=== PATIENT | male | born 1965 | race Caucasian/White ===

== ENCOUNTER 2022-06-04 19:52 | Inpatient (IN) ==
[2022-06-04] MEDS ORDERED: NITROGLYCERIN SL 0.4 MG/TAB TAB SL PRN (20:25)
[2022-06-04] MEDS ORDERED: SODIUM CHLORIDE 0.9% 1000ML 1,000 ML IV STA (20:25)
[2022-06-04 20:37] LABS: Basophils # (auto) 0.03 K/uL (0-0.2); Basophils % (auto) 0.4 %; Eosinophils # (auto) 0.04 K/uL (0-0.50); Eosinophils % (auto) 0.5 %; Hematocrit (blood only) 42.3 % (40.1-51.0); Hemoglobin 14.7 g/dl (14.0-18.0); Immature Granulocytes # (auto) 0.24 K/uL (0.00-0.02); Immature Granulocytes % (auto) 3.1 %; Lymphocytes # (auto) 0.76 K/uL (1.2-3.4); Lymphocytes % (auto) 9.7 %; Mean Corpuscular Hemoglobin 29.4 pg (25.0-34.0); Mean Corpuscular Hgb Conc 34.8 g/dL (32.0-36.0); Mean Corpuscular Volume 84.6 fL (80.0-100.0); Mean Platelet Volume 9.8 fL (9.4-12.4); Monocytes # (auto) 0.51 K/uL (0.24-0.82); Monocytes % (auto) 6.5 %; Neutrophils # (auto) 6.25 K/uL (1.4-6.5); Neutrophils % (auto) 79.8 %; Platelet Count 195 K/uL (130-400); RDW Coefficient of Variation 12.1 % (11.5-14.5); RDW Standard Deviation 36.8 fL (36.4-46.3); White Blood Count 7.83 K/ul (4.8-10.8)
--- NOTE | 2022-06-04 20:45 | Emergency Department Note ---
History of Present Illness General Chief Complaint: Cardiac Assessment Time Seen by Provider: 06/04/22 20:17 History of Present Illness Provider Complaint: chest pain Onset (ago): hour(s) 1 Duration: intermittent Onset: during rest Pain Location: left chest Severity: moderate Maximum Pain Intensity: 4 Current Pain Intensity: 4 Quality: + heaviness Relieved By: + nothing Exacerbated By: + nothing Context: + recent illness (Recently had COVID 2 weeks ago); no recent surgery, no recent immobilization, no recent travel, no trauma/injury, no new medications or no history of DVT/PE Associated symptoms: + diaphoresis; no vomiting, no dyspnea, no syncope, no palpitations, no cough or no leg swelling Treatments prior to arrival: aspirin Home Medications Medication Instructions Recorded Confirmed Type amlodipine 10 mg tablet 10 mg PO DAILY 06/04/22 06/04/22 History aspirin 81 mg tablet,delayed 81 mg PO DAILY 06/04/22 06/04/22 History release atorvastatin 80 mg tablet 80 mg PO HS 06/04/22 06/04/22 History citalopram 20 mg tablet 20 mg PO DAILY 06/04/22 06/04/22 History garlic 300 mg capsule 300 mg PO DAILY 06/04/22 06/04/22 History metoprolol succinate 25 mg 25 mg PO DAILY 06/04/22 06/04/22 History tablet,extended release 24 hr omega 0-taq-gxy-fish oil 1,000 mg 1 cap PO DAILY 06/04/22 06/04/22 History (120 mg-180 mg) capsule (Fish Oil) Allergies Allergy/AdvReac Type Severity Reaction Status Date / Time No Known Allergies Allergy Mild Verified 06/04/22 20:36 Past Med/Surg History Medical History (Updated 06/05/22 @ 01:07 by Franco Samson) CAD (coronary artery disease) HTN (hypertension) Myocardial infarct No pertinent family history Surgical History (Updated 06/04/22 @ 20:43 by Franco Samson) No pertinent past surgical history Social History Smoking Status: Never smoker Feels Safe at Home: Yes Physical Exam Vital Signs Vital Signs - 24 hr 06/04/22 19:58 06/04/22 20:09 06/04/22 20:43 Temperature 36.8 C Temperature Source Oral Pulse Rate 73 66 Pulse Rate [Apical] Pulse Rhythm Regular Regular Pulse Rhythm [Apical] Pulse Strength Normal Pulse Strength [Apical] Respiratory Rate 16 16 Respiratory Effort / Characteristics Non-Labored Spontaneous Respiratory Depth Normal Respiratory Pattern Regular Blood Pressure 142/92 H Blood Pressure [Right Arm] Blood Pressure Mean 108 Blood Pressure Mean [Right Arm] Blood Pressure Position Semi-fowlers Blood Pressure Position [Right Arm] Pulse Oximetry 100 100 99 Oxygen Delivery Method Room Air Room Air Room Air Oxygen Flow Rate 0 Sepsis Recent Fever Within 48 Hours No Sepsis New/Unexplained Change in Mental Status No Sepsis Action Taken by Nursing No Action Required 06/04/22 20:48 06/04/22 22:30 06/05/22 00:10 Temperature Temperature Source Pulse Rate Pulse Rate [Apical] 67 74 71 Pulse Rhythm Pulse Rhythm [Apical] Regular Regular Regular Pulse Strength Pulse Strength [Apical] Normal Normal Normal Respiratory Rate 14 16 16 Respiratory Effort / Characteristics Non-Labored Spontaneous Non-Labored Spontaneous Non-Labored Spontaneous Respiratory Depth Normal Normal Normal Respiratory Pattern Regular Regular Regular Blood Pressure Blood Pressure [Right Arm] 123/73 127/74 144/78 H Blood Pressure Mean Blood Pressure Mean [Right Arm] 89 91 100 Blood Pressure Position Blood Pressure Position [Right Arm] Semi-fowlers Semi-fowlers Semi-fowlers Pulse Oximetry 99 100 99 Oxygen Delivery Method Room Air Room Air Room Air Oxygen Flow Rate Sepsis Recent Fever Within 48 Hours Sepsis New/Unexplained Change in Mental Status Sepsis Action Taken by Nursing Physical Exam GENERAL: He is oriented to person, place, and time. He appears well-developed and well-nourished. He does not appear distressed. HENT: Exam performed. - Head: Normocephalic and atraumatic. - Right Ear: External ear normal. No mastoid tenderness. - Left Ear: External ear normal. No mastoid tenderness. - Mouth/Throat: The oropharynx is clear and moist. No trismus in the jaw. No dental abscesses or uvula swelling. No oropharyngeal exudate or tonsillar abscesses. EYES: Conjunctivae and EOM are normal. Pupils are equal, round, and reactive to light. Right eye exhibits no discharge. Left eye exhibits no discharge. No scleral icterus. NECK: Normal range of motion. Neck supple. No JVD present. No spinous process tenderness present. No carotid bruit present. No rigidity. No tracheal deviation and normal range of motion present. No Brudzinski's sign and no Kernig's sign noted. CV: Normal rate, regular rhythm, normal heart sounds and intact distal pulses. There is no peripheral edema. Palpable radial pulses bue. PULM/CHEST: Effort normal and breath sounds normal. No respiratory distress. No stridor. He has no wheezes. He has no rales. - Chest Wall: He exhibits no tenderness. ABD: The abdomen is soft. Bowel sounds are normal. He has no distension. No mass is present. There is no tenderness. There is no rebound, no guarding, no Quinones's sign and no tenderness at McBurney's point. Rovsig negative. MUSC/SKEL: Normal range of motion. There is no peripheral edema, tenderness or deformity. LYMPH: No cervical adenopathy. NEURO: He is alert and oriented to person, place, and time. He has normal strength. No cranial nerve deficit or sensory deficit. Coordination and gait normal. GCS eye subscore is 4. GCS verbal subscore is 5. GCS motor subscore is 6. Cerebellar tests wnl. SKIN: Skin is warm and dry. He is not diaphoretic. PSYCH: He has a normal mood and affect. Behavior is normal. Judgment and thought content normal. Course Course 2017: The patient was evaluated in room A11B. A complete history and physical exam was performed Cardiac monitoring: An order was placed for continuous cardiac monitoring. The monitor shows a rate of 70 with sinus rhythm 2046: Status post 1 sublingual nitroglycerin patient reports his chest pain is completely resolved. 0013: Vital signs stable. Patient reporting no chest pain at this time. Patient reports he is visiting from [place]. Labs show an elevated D-dimer greater than 2000. CTA of the chest negative for PE. High-sensitivity troponin elevated at 64.6. Patient will be admitted to the [facility]ist team for chest pain. Dr. Mulligan team notified. Administered Medications Nitroglycerin (Nitroglycerin Sl 0.4 Mg/Tab Tab) 0.4 mg SL UD PRN PRN Reason: Chest Pain Stop: 07/04/22 20:24 Last Admin: 06/04/22 20:37 Dose: 0.4 mg Documented By: JANEEN Discontinued Medications Sodium Chloride (Nss 1000ml) 1,000 mls @ 999 mls/hr IV .Q1H1M STA Stop: 06/04/22 21:25 Last Infusion: 06/04/22 22:00 Dose: 0 mls/hr Documented By: Admin: 06/04/22 20:46 Dose: 999 mls/hr Documented By: JANEEN Ioversol (Optiray 320 500ml) 110 ml IV ONCE ONE Stop: 06/04/22 21:41 Last Admin: 06/04/22 21:40 Dose: 110 ml Documented By: [facility] Medical Decision Making Laboratory Data Result diagrams: 06/04/22 20:00 06/04/22 20:00 Labs: Lab Results 06/04/22 06/04/22 06/04/22 Range/Units 20:00 20:00 20:00 WBC 7.83 (4.8-10.8) K/ul RBC 5.00 (4.63-6.08) M/uL Hgb 14.7 (14.0-18.0) g/dl Hct 42.3 (40.1-51.0) % MCV 84.6 (80.0-100.0) fL MCH 29.4 (25.0-34.0) pg MCHC 34.8 (32.0-36.0) g/dL RDW Std Deviation 36.8 (36.4-46.3) fL RDW Coeff of Jayson 12.1 (11.5-14.5) % Plt Count 195 (130-400) K/uL MPV 9.8 (9.4-12.4) fL Immature Gran % (Auto) 3.1 % Neut % (Auto) 79.8 % Lymph % (Auto) 9.7 % [place] % (Auto) 6.5 % Eos % (Auto) 0.5 % Baso % (Auto) 0.4 % Neut # (Auto) 6.25 (1.4-6.5) K/uL Lymph # (Auto) 0.76 L (1.2-3.4) K/uL [place] # (Auto) 0.51 (0.24-0.82) K/uL Eos # (Auto) 0.04 (0-0.50) K/uL Baso # (Auto) 0.03 (0-0.2) K/uL Immature Gran # (Auto) 0.24 H (0.00-0.02) K/uL PT 11.1 (9.0-12.0) Seconds INR 1.0 (0.9-1.1) APTT 25.2 (21.0-31.0) Seconds PTT Ratio 0.9 D-Dimer 2080 H* (0-500) ug/L FEU Sodium 136 (136-145) mmol/L Potassium 4.2 (3.5-5.1) mmol/L Chloride 102 (98-107) mmol/L Carbon Dioxide 26 (21-32) mmol/L Anion Gap 8 (3-11) BUN 18 (6-23) mg/dl Creatinine 1.20 (0.6-1.4) mg/dl Est Cr Clr Drug Dosing 83.8 ml/min Est GFR ( Amer) 79.0 ml/min Est GFR (Non-Af Amer) 68.1 ml/min BUN/Creatinine Ratio 15.0 (10-20) Glucose 111 H (70-99(Fasting)) mg/dl Calcium 9.1 (8.5-10.1) mg/dl Troponin I High Sens 64.6 H* (0-20) pg/ml Lipase 30 (11-82) U/L SARS-CoV-2, RNA, NAAT (NEGATIVE) 06/04/22 Range/Units 20:45 WBC (4.8-10.8) K/ul RBC (4.63-6.08) M/uL Hgb (14.0-18.0) g/dl Hct (40.1-51.0) % MCV (80.0-100.0) fL MCH (25.0-34.0) pg MCHC (32.0-36.0) g/dL RDW Std Deviation (36.4-46.3) fL RDW Coeff of Jayson (11.5-14.5) % Plt Count (130-400) K/uL MPV (9.4-12.4) fL Immature Gran % (Auto) % Neut % (Auto) % Lymph % (Auto) % [place] % (Auto) % Eos % (Auto) % Baso % (Auto) % Neut # (Auto) (1.4-6.5) K/uL Lymph # (Auto) (1.2-3.4) K/uL [place] # (Auto) (0.24-0.82) K/uL Eos # (Auto) (0-0.50) K/uL Baso # (Auto) (0-0.2) K/uL Immature Gran # (Auto) (0.00-0.02) K/uL PT (9.0-12.0) Seconds INR (0.9-1.1) APTT (21.0-31.0) Seconds PTT Ratio D-Dimer (0-500) ug/L FEU Sodium (136-145) mmol/L Potassium (3.5-5.1) mmol/L Chloride (98-107) mmol/L Carbon Dioxide (21-32) mmol/L Anion Gap (3-11) BUN (6-23) mg/dl Creatinine (0.6-1.4) mg/dl Est Cr Clr Drug Dosing ml/min Est GFR ( Amer) ml/min Est GFR (Non-Af Amer) ml/min BUN/Creatinine Ratio (10-20) Glucose (70-99(Fasting)) mg/dl Calcium (8.5-10.1) mg/dl Troponin I High Sens (0-20) pg/ml Lipase (11-82) U/L SARS-CoV-2, RNA, NAAT NEGATIVE (NEGATIVE) Imaging Data Chest x-ray: Attestation: I personally reviewed and interpreted this imaging study as follows: My impression: Chest x-ray negative. Airway clear. No pneumothorax. No consolidation. No cardiomegaly or cephalization.. No free air under the diaphragm. No fractures of the skeletal structures. CT scan - chest: Radiologist's impression: PreliminaryFindingsOnly See Final Report For Complete Findings CTACHEST: No evidence of PE. Lungs are clear. No pleural effusions. No adenopathy. Heart size is normal. Aorta is unremarkable. Radiologist: Heber Murphy MD Study ready at 21:42 and initial results transmitted at 00:00 ECG Data Attestation: I personally reviewed and interpreted this ECG as follows: Additional Comments: EKG 1 at 1954: Sinus rhythm with a rate of 67. KS QRS and QT intervals within normal limits. No ST elevation or ST depression. EKG #2 at 2039: Sinus rhythm with rate of 67. KS QRS and QTc intervals are within normal limits. No ST elevation or ST depression. EKG #3 at 39: Sinus rhythm with rate of 66. KS QRS and QTc intervals are within normal limits. No ST elevation or ST depression. MDM Narrative 2017: The patient was evaluated in room A11B. A complete history and physical exam was performed Cardiac monitoring: An order was placed for continuous cardiac monitoring. The monitor shows a rate of 70 with sinus rhythm 2046: Status post 1 sublingual nitroglycerin patient reports his chest pain is completely resolved. 0013: Vital signs stable. Patient reporting no chest pain at this time. Patient reports he is visiting from [place]. Labs show an elevated D-dimer greater than 2000. CTA of the chest negative for PE. High-sensitivity troponin elevated at 64.6. Patient will be admitted to the [facility] hospitalist team for chest pain. Dr. Mulligan team notified. Impression & Plan Chest pain, Elevated troponin Discharge Plan Visit Data Chief Complaint: Cardiac Assessment ED Provider: Franco Samson Discharge Problem: Chest pain, Elevated troponin Patient Disposition: Being Evaluated by Hospitalist Forms Stand Alone Forms: [facility] [email or web address] Prescriptions Prescriptions: No Action garlic 300 mg Capsule 300 mg PO DAILY atorvastatin 80 mg tablet 80 mg PO HS aspirin 81 mg Tablet,Delayed Release (Dr/Ec) 81 mg PO DAILY citalopram 20 mg tablet 20 mg PO DAILY amlodipine 10 mg tablet 10 mg PO DAILY metoprolol succinate 25 mg tablet extended release 24 hr 25 mg PO DAILY omega 5-cef-xzs-fish oil [Fish Oil] 1,000 mg (120 mg-180 mg) Capsule 1 cap PO DAILY Referrals Referrals: PCP,NO [Primary Care Provider] -
[2022-06-04 20:50] LABS: Calcium 9.1 mg/dl (8.5-10.1); Creatinine Clr Calc Pharmacy 83.8 ml/min; Est GFR (Non-African American) 68.1 ml/min; Potassium 4.2 mmol/L (3.5-5.1)
[2022-06-04 20:55] LABS: Partial Thromboplastin Ratio 0.9; Partial Thromboplastin Time 25.2 Seconds (21.0-31.0); Prothrombin Time 11.1 Seconds (9.0-12.0)
[2022-06-04 20:59] LABS: Troponin I High Sensitivity 64.6 pg/ml (0-20)
[2022-06-04 21:08] LABS: D Dimer 2080 ug/L FEU (0-500)
[2022-06-04] MEDS ORDERED: OPTIRAY 320 500ml IV ONE (21:40)
[2022-06-05] MEDS ORDERED: MAGNESIUM HYDROXIDE SUSP 30 ML UDC PO PRN (00:30)
[2022-06-05] MEDS ORDERED: ONDANSETRON INJ 2 MG/ML 2 ML VIAL IV PRN ×2 (00:30→14:36)
[2022-06-05] MEDS ORDERED: NITROGLYCERIN SL 0.4 MG/TAB TAB SL PRN ×2 (00:30→09:58)
[2022-06-05] MEDS ORDERED: ALUMINUM/MAGNESIUM SUSP 30 ML UDC PO PRN (00:30)
[2022-06-05] MEDS ORDERED: ACETAMINOPHEN 325 MG TAB PO PRN (00:30)
[2022-06-05] MEDS ORDERED: Heparin IV Adult Wt-Based Low-Dose *NO* Bolus Protocol IV SCH (00:31)
--- NOTE | 2022-06-05 00:38 | History & Physical Report ---
Date of Service June 05, 2022 Assessment & Plan (1) Chest pain: Plan Chest pain rule out ACS: Patient presents with chest pressure, personal history of DE status post 7 stents in November 2019, family history significant for father dying of massive heart attack in his age 40. Admitting troponin elevated, admitting EKG with no acute ST or T changes. Patient chest pain relieved with nitroglycerin in the ED. Given personal and family history and typical chest pain, likely NSTEMI, will start heparin drip, consult cardiology, EKG as needed and daily. Telemetry monitoring. N.p.o. midnight. echo. Other chronic medical conditions: CAD/HDL/HTN----resume home meds as able DVT prophylaxis: On heparin drip Full code History of Present Illness Chief Complaint: Chest discomfort Primary Care Provider: AUREA PCP 56-year-old man with PMH of recent diagnosis of COVID, HTN, HLD, DE in November 2019 status post 7 stents presented to the ED 06/04 with complaint of chest discomfort that he started as a pressure while he was watching a basketball game, did not resolve, given his prior DE history he decided to come to the hospital. Patient is visiting from [place]. Chest pain started around 6:15 PM, while watching game, as pressure-like over left chest, associated with panic and sweating, no radiation, no nausea. Patient denies any headache/dizziness/sore throat/cough/belly pain/acute changes in his bowel or bladder habits/other review of symptoms. Patient denies smoking/alcohol/recreational drug use. Full code Occupationmental therapist Medications reviewed with the patient at bedside. Patient's Sister Radha was present at bedside. Family history positive for father dying of massive heart attack at his age 40. Allergies Allergy/AdvReac Type Severity Reaction Status Date / Time No Known Allergies Allergy Mild Verified 06/04/22 20:36 Home Medications Medication Instructions Recorded Confirmed Type amlodipine 10 mg tablet 10 mg PO DAILY 06/04/22 06/04/22 History aspirin 81 mg tablet,delayed 81 mg PO DAILY 06/04/22 06/04/22 History release atorvastatin 80 mg tablet 80 mg PO HS 06/04/22 06/04/22 History citalopram 20 mg tablet 20 mg PO DAILY 06/04/22 06/04/22 History garlic 300 mg capsule 300 mg PO DAILY 06/04/22 06/04/22 History metoprolol succinate 25 mg 25 mg PO DAILY 06/04/22 06/04/22 History tablet,extended release 24 hr omega 3-bpc-ocu-fish oil 1,000 mg 1 cap PO DAILY 06/04/22 06/04/22 History (120 mg-180 mg) capsule (Fish Oil) Past Med/Surg History Medical History (Updated 06/05/22 @ 00:36 by Nilo Mulligan MD) CAD (coronary artery disease) HTN (hypertension) Myocardial infarct No pertinent family history Surgical History (Updated 06/04/22 @ 20:43 by Franco Samson) No pertinent past surgical history Social History Smoking Status: Never smoker Feels Safe at Home: Yes Review of Systems Review of Systems: Negative otherwise mentioned in HPI. Physical Exam Physical Exam: GENERAL: Alert and oriented x3. NAD, on RA. HEENT: No pallor, no icterus. Pupils equal, round and reactive to light. Oral mucosa moist. NECK: No JVD, no neck masses. HEART: S1 and S2 heard. Regular rate and rhythm. No murmur, no gallop. RESPIRATORY SYSTEM: Normal AP diameter. No accessory muscle use. No wheezing, no crackles. ABDOMEN: Soft, bowel sounds present, nontender, no distention. CENTRAL NERVOUS SYSTEM: No facial droop. Speech is clear. Obeys simple commands. Moves extremities. EXTREMITIES: No edema, no erythema seen. Results & Data Results & Data ([facility]) Vital Signs (Past 12 Hours) Vital Signs Temp Pulse Pulse Resp BP BP Pulse Ox 06/05/22 00:10 71 16 144/78 H 99 06/04/22 22:30 74 16 127/74 100 06/04/22 20:48 67 14 123/73 99 06/04/22 20:43 66 16 99 06/04/22 20:09 100 06/04/22 19:58 36.8 C 73 16 142/92 H 100 O2 Del Method O2 Flow Rate 06/05/22 00:10 Room Air 06/04/22 22:30 Room Air 06/04/22 20:48 Room Air 06/04/22 20:43 Room Air 06/04/22 20:09 Room Air 0 06/04/22 19:58 Room Air Code Status & VTE Plan VTE Prophylaxis Plan VTE Prophylaxis will be ordered: Yes
[2022-06-05] MEDS ORDERED: HEPARIN SODIUM/DEXTROSE 25,000 UNITS/500 ML BAG IV SCH ×2 (00:45→10:15)
[2022-06-05] MEDS ORDERED: Heparin IV Adult Wt-Based Standard WITH Bolus Protocol IV SCH (02:00)
[2022-06-05] MEDS ORDERED: METOPROLOL TARTRATE 25 MG TAB PO STA (02:13)
[2022-06-05] MEDS: Heparin Adult STANDARD Wt-Based Dextrose 5% 25,000 units/500 mL IV SCH (02:14)
[2022-06-05] MEDS ORDERED: ATORVASTATIN 40 MG TAB PO ONE (02:14)
[2022-06-05] MEDS ORDERED: Heparin IVP from UFH Protocol (WITH Bolus) IV ONE (02:15)
[2022-06-05] MEDS: NITROGLYCERIN 2% OINTMENT 30GM TUBE EXT SCH ×5 (02:28→22:40)
--- NOTE | 2022-06-05 06:46 | XRay Report ---
XR chest 1V portable HISTORY: 56 years-old Male Chest pain, nonspecific COMPARISON: CTA chest of same day TECHNIQUE: AP view of the chest FINDINGS: Cardiomediastinal and hilar silhouettes are within normal limits. No pneumothorax, pleural effusion, airspace consolidation or overt pulmonary edema. Bones of the chest appear grossly intact. Cholecyste ctomy. IMPRESSION: No acute process. ACT 112: Negative or not required by law. The above report was generated using voice recognition software. It may contain grammatical, syntax o r spelling errors. Electronically signed by: Kye Rios M.D. 06/05/2022 6:45 AM
[2022-06-05 06:57] LABS: BUN Creatinine Ratio 13.2 (10-20); Calcium 8.6 mg/dl (8.5-10.1); Creatinine Clr Calc Pharmacy 101.9 ml/min; Est GFR (African American) 110.3 ml/min; Est GFR (Non-African American) 95.2 ml/min; Potassium 4.2 mmol/L (3.5-5.1)
--- NOTE | 2022-06-05 06:58 | Critical Care Consultation ---
Date of Consultation June 05, 2022 Assessment & Plan (1) NSTEMI (non-ST elevated myocardial infarction): Impression: 56-year-old male with extensive cardiac history presents to the ICU following an episode of chest pain and significantly elevated troponin Neuro - [facility] ICU: Negative Cardiac - NSTEMIpatient with history of CAD and prior AL with 7 coronary stents, now presents with episode of chest pain lasting 45 minutes and significantly elevated troponin. No ST elevation on EKG. -Was given ASA, Nitropaste, and started on heparin drip -Suspect patient will need additional cath. Cardiology consult pending. We will follow recommendations -Follow-up echo -Continue ASA, statin, MTP -Continuous monitor on telemetry -ICU for close monitoring. Did instruct patient to notify of any chest pain or other cardiac symptoms immediately. If he were to become symptomatic will need emergent catheterization. Respiratory - No history of pulmonary disease, maintain oxygen saturation on room air. Continuous monitoring pulse ox GI - N.p.o. for now RENAL/LYTES - Monitor routine BMPs and replete electrolytes as indicated. Creatinine within normal limits - Strict I's and O's ENDO - No history of diabetes or thyroid disease. ICU hyperglycemic protocol HEME - H&H stable, monitor routine CBCs ID - No indication for infectious process at this time LINES/IV ACCESS - Peripheral IVs DVT PROPHYLAXIS - SCDs, heparin drip Thank you for allowing us to participate in the care of this patient. Please refer to my attending physician's documentation for any further recommendations. (2) Elevated troponin: (3) HTN (hypertension): (4) Chest pain: (5) CAD (coronary artery disease): History of Present Illness Attending Physician: Humberto Rowe MD History of Present Illness Patient is a 56-year-old male with past medical history HTN, HLD, CAD, and AL and 12/21 with 7 stents placed who presented to the emergency department last evening after developing chest pain and diaphoresis during a basketball game. Patient is out of town from [place]. He states that he started having chest pain around 6:15 PM and resolved about 45 minutes after. Patient received 324 mg of aspirin and Nitropaste. No ST elevation on EKG however his troponin increased from 64-31,000. He was started on heparin drip and cardiology was consulted but did not recommend emergent catheterization unless he became symptomatic. Monitoring in ICU was recommended. On arrival to the ICU the patient is alert and oriented and in no acute distress. He is hemodynamically stable and maintaining oxygen saturations on room air. At this time the patient denies cardiac symptoms including chest pain, palpitations, shortness of breath, arm or jaw pain, nausea or vomiting, or diaphoresis. He denies headache or dizziness, sore throat, abdominal pain, swelling in hands or feet, changes in gait, changes in vision. Patient does report recent diagnosis of COVID-19 in which she experienced upper respiratory symptoms and body aches. He states that he still has a mild cough but he is tested negative. Allergies Allergy/AdvReac Type Severity Reaction Status Date / Time No Known Allergies Allergy Mild Verified 06/04/22 20:36 Home Medications Medication Instructions Recorded Confirmed Type amlodipine 10 mg tablet 10 mg PO DAILY 06/04/22 06/04/22 History aspirin 81 mg tablet,delayed 81 mg PO DAILY 06/04/22 06/04/22 History release atorvastatin 80 mg tablet 80 mg PO HS 06/04/22 06/04/22 History citalopram 20 mg tablet 20 mg PO DAILY 06/04/22 06/04/22 History garlic 300 mg capsule 300 mg PO DAILY 06/04/22 06/04/22 History metoprolol succinate 25 mg 25 mg PO DAILY 06/04/22 06/04/22 History tablet,extended release 24 hr omega 2-zta-mxf-fish oil 1,000 mg 1 cap PO DAILY 06/04/22 06/04/22 History (120 mg-180 mg) capsule (Fish Oil) Patient History Medical History CAD (coronary artery disease) HTN (hypertension) Myocardial infarct No pertinent family history Surgical History No pertinent past surgical history Social History Smoking Status: Never smoker Hx Alcohol Use: Yes Alcohol type: beer Hx Substance Use: No Preferred Language: [place] Citizen Communication Ability: Effective Services Engineer Required: No Beliefs That Will Affect Care: None Current Living Situation: Spouse and Family Current Living Situation Comment: Pt lives with spouse and two sons Other Information That Helps Us Care for You: No Feels Safe at Home: Yes Safety Concerns: Feels Safe At This Time Assistive Devices: None Review of Systems Review of Systems: All systems reviewed & are unremarkable except as noted in HPI & below Physical Exam Constitutional: WD/WN, vitals as above cooperative and comfortable; no acute distress Eyes: PERRL, conjunctivae normal, anicteric sclerae ENMT: external ear and nose normal, oropharynx normal Neck: trachea midline, no thyromegaly Respiratory: normal respiratory effort, lungs clear to auscultation Cardiovascular: RRR, no murmur, no edema Heart Sounds: normal S1 and normal S2 Vessels: no JVD Extremities: no edema Gastrointestinal (Abdomen): normal bowel sounds, soft, nontender, no hepatosplenomegaly Musculoskeletal: no cyanosis or clubbing, extremities motor strength 5/5 Skin: no rashes, warm and dry Neurologic: PERRL, EOMI, accommodation nl, no face palsy, no dysarthria Psychiatric: A+Ox3, euthymic affect Results & Data Results & Data ([facility]) Vital Signs (Past 12 Hours) Vital Signs Temp Pulse Pulse Resp BP BP BP 06/05/22 06:14 59 L 06/05/22 05:44 36.7 C 60 16 122/75 06/05/22 05:00 51 L 13 111/76 06/05/22 04:30 51 L 12 113/77 06/05/22 04:00 58 L 21 117/78 06/05/22 03:00 64 14 121/76 06/05/22 02:20 72 18 124/80 06/05/22 00:10 71 16 144/78 H 06/04/22 22:30 74 16 127/74 06/04/22 20:48 67 14 123/73 06/04/22 20:43 66 16 06/04/22 20:09 06/04/22 19:58 36.8 C 73 16 142/92 H Pulse Ox O2 Del Method O2 Flow Rate 06/05/22 06:14 06/05/22 05:44 92 Room Air 06/05/22 05:00 98 Room Air 06/05/22 04:30 98 Room Air 06/05/22 04:00 97 Room Air 06/05/22 03:00 97 Room Air 06/05/22 02:20 100 Room Air 06/05/22 00:10 99 Room Air 06/04/22 22:30 100 Room Air 06/04/22 20:48 99 Room Air 06/04/22 20:43 99 Room Air 06/04/22 20:09 100 Room Air 0 06/04/22 19:58 100 Room Air Coding Level of Care Code 70782 Inpt Consult Level 3 Diagnoses NSTEMI (non-ST elevated myocardial infarction) I21.4 Elevated troponin R77.8 HTN (hypertension) I10 Chest pain R07.9 CAD (coronary artery disease) I25.10
--- NOTE | 2022-06-05 07:29 | Critical Care Progress Note ---
Date of Service June 05, 2022 Assessment & Plan (1) CAD (coronary artery disease): (2) NSTEMI (non-ST elevated myocardial infarction): (3) Elevated troponin: (4) Chest pain: (5) HTN (hypertension): (6) Anxiety: Plan Impression: 56-year-old male with extensive cardiac history presents to the ICU following an episode of chest pain and significantly elevated troponin Neuro - [facility] ICU: Negative -- Anxiety/depression Continue with citalopram Cardiac - NSTEMI:- No ST elevation on EKG. -Was given ASA, Nitropaste, and started on heparin drip -Troponin 31,000 -Follow-up echo -Continue ASA, statin, beta-sonia -Continuous monitor on telemetry -- Coronary artery disease History of 7 stents placed back in 2019 He was taken off P2Y twelve 1 year after the stent was placed approximately 2020 --Hypertension Continue with Norvasc and beta-sonia Respiratory - No history of pulmonary disease, maintain oxygen saturation on room air. Continuous monitoring pulse ox GI - N.p.o. for now RENAL/LYTES - Monitor BUNs/creatinine Avoid nephrotoxic medications - Strict I's and O's ENDO - Continue with ICU hyperglycemic protocol HEME - H&H stable, monitor routine CBCs ID - No indication for infectious process at this time --Prophylaxis VTE: Heparin drip GI: Pantoprazole Lines: Peripheral Diet: N.p.o. Plan: Patient going to cardiac cath today Patient did not receive Plavix or ticagrelor. Given that he is going to [facility] we will hold back on that. Continue with metoprolol, aspirin and atorvastatin. Will consider changing amlodipine to NAM inhibitor prior to discharge I have personally spent 31 minutes of critical care time in the direct management of this patient. This is a life/limb threatening event. This includes time spent evaluating patient, direct bedside care, chart review, placing orders, interpretation of diagnostic studies, discussion with consultants, patient, and family members, as well as other required patient management activities. This time is exclusive of all separately billable procedures, and teaching time and separate from and in addition to any other critical care service time. Please note the above document was generated using voice recognition software. It may contain grammatical, syntax or spelling errors. Admission and Anticipated Discharge Date Admission Date: June 05, 2022 Subjective Patient seen and examined at bedside. No acute distress. Patient's heart rate was in the low 60s. Denies any chest pain at the time of examination No shortness of breath. Mild headache. No dysuria, no diarrhea Has been n.p.o. for possible cardiac cath today. Patient is a lifetime non-smoker. Review of Systems Review of Systems: All systems reviewed & are unremarkable except as noted in Subjective Physical Exam Physical Exam: Constitutional: No acute distress HEENT: EOMI, PERRLA Respiratory system: Good air entry bilaterally, no wheeze, no rhonchi, no crackles CVS: S1-S2 positive, no murmurs or gallops Abdomen: Soft, nontender, nondistended, positive bowel sounds x4 Extremities: +2 pulses bilaterally radialis/ dorsalis pedis, no cyanosis, no edema Neuro: Awake alert oriented x3 Psych: Normal mood and affect G/U: No Reddy Skin: no rashes, warm and dry Lymphatic: no cervical or axillary lymphadenopathy Results & Data Results & Data ([facility]) Vital Signs (Past 12 Hours) Vital Signs Temp Pulse Pulse Resp BP BP BP 06/05/22 06:14 59 L 06/05/22 05:44 36.7 C 60 16 122/75 06/05/22 05:00 51 L 13 111/76 06/05/22 04:30 51 L 12 113/77 06/05/22 04:00 58 L 21 117/78 06/05/22 03:00 64 14 121/76 06/05/22 02:20 72 18 124/80 06/05/22 00:10 71 16 144/78 H 06/04/22 22:30 74 16 127/74 06/04/22 20:48 67 14 123/73 06/04/22 20:43 66 16 06/04/22 20:09 06/04/22 19:58 36.8 C 73 16 142/92 H Pulse Ox O2 Del Method O2 Flow Rate 06/05/22 06:14 06/05/22 05:44 92 Room Air 06/05/22 05:00 98 Room Air 06/05/22 04:30 98 Room Air 06/05/22 04:00 97 Room Air 06/05/22 03:00 97 Room Air 06/05/22 02:20 100 Room Air 06/05/22 00:10 99 Room Air 06/04/22 22:30 100 Room Air 06/04/22 20:48 99 Room Air 06/04/22 20:43 99 Room Air 06/04/22 20:09 100 Room Air 0 06/04/22 19:58 100 Room Air Laboratory Results 06/04/22 20:00 06/05/22 05:41 Coding Level of Care Code Critical Care 1st 30-74 mins Diagnoses CAD (coronary artery disease) I25.10 NSTEMI (non-ST elevated myocardial infarction) I21.4 Elevated troponin R77.8 Chest pain R07.9 HTN (hypertension) I10 Anxiety F41.9 Time Spent (min) 31
[2022-06-05] MEDS ORDERED: HEPARIN (PORCINE) 1000 UNIT/ML 10 ML (CATH LAB USE ONLY) ONE (08:28)
[2022-06-05] MEDS ORDERED: MIDAZOLAM HCL 1 MG/ML 2ML VIAL ONE ×2 (08:28→09:26)
[2022-06-05] MEDS ORDERED: fentaNYL citrate 100 MCG/2 ML VIAL ONE (08:28)
[2022-06-05] MEDS ORDERED: niCARdipine HCL INJ 2.5 MG/ML 10 ML AMP ONE (08:28)
[2022-06-05] MEDS ORDERED: NITROGLYCERIN/D5W 100MCG/ML 20ML SYR ONE (08:29)
--- NOTE | 2022-06-05 08:29 | Cardiology Consultation ---
Date of Consultation June 05, 2022 Assessment & Plan (1) NSTEMI (non-ST elevated myocardial infarction): (2) CAD (coronary artery disease): (3) HTN (hypertension): Plan 56-year-old patient presents with NSTEMI. Significant history of myocardial infarction and multivessel stenting in 2019. Echocardiogram with small, apical wall motion abnormality. Preserved LV systolic function. Treated with topical nitrates and IV heparin overnight. Currently pain-free. Recommend cardiac catheterization for further evaluation. Risk, benefits, alternatives to procedure discussed. Patient agreeable. Further recommendations pending result of procedure. History of Present Illness Reason for Consultation: NSTEMI Requesting Physician: Dr. Mulligan Attending Physician: Humberto Rowe MD History of Present Illness 56 old patient presented emergency department with chest discomfort. Patient attending [employer] game when he suddenly developed substernal and left-sided pressure and heaviness. Discomfort rated at 7/10 lasting approximately 1 hour when he came to the emergency department for further evaluation and treatment. He was given sublingual nitroglycerin and IV heparin. Discomfort slowly resolved and by proximal 11 PM he was pain-free. Reports history of coronary artery disease with prior myocardial infarction 2019 s/p 7 stents to undisclosed vessels. Resides in [place]. Visiting family in the area for the holidays. Currently pain-free. ECG without ischemic changes. High-sensitivity trending up to 51,000. Preliminary review of bedside echocardiogram demonstrates a small apical inferior wall motion abnormality. Preserved LV systolic function. No significant valvular pathology. Allergies Allergy/AdvReac Type Severity Reaction Status Date / Time No Known Allergies Allergy Mild Verified 06/04/22 20:36 Home Medications Medication Instructions Recorded Confirmed Type amlodipine 10 mg tablet 10 mg PO DAILY 06/04/22 06/04/22 History aspirin 81 mg tablet,delayed 81 mg PO DAILY 06/04/22 06/04/22 History release atorvastatin 80 mg tablet 80 mg PO HS 06/04/22 06/04/22 History citalopram 20 mg tablet 20 mg PO DAILY 06/04/22 06/04/22 History garlic 300 mg capsule 300 mg PO DAILY 06/04/22 06/04/22 History metoprolol succinate 25 mg 25 mg PO DAILY 06/04/22 06/04/22 History tablet,extended release 24 hr omega 3-ndb-czr-fish oil 1,000 mg 1 cap PO DAILY 06/04/22 06/04/22 History (120 mg-180 mg) capsule (Fish Oil) Patient History Medical History CAD (coronary artery disease) HTN (hypertension) Myocardial infarct No pertinent family history Surgical History No pertinent past surgical history Social History Smoking Status: Never smoker Hx Alcohol Use: Yes Alcohol type: beer Hx Substance Use: No Preferred Language: [place] Communication Ability: Effective Proposal Writer Required: No Beliefs That Will Affect Care: None Current Living Situation: Spouse and Family Current Living Situation Comment: Pt lives with spouse and two sons Other Information That Helps Us Care for You: No Feels Safe at Home: Yes Safety Concerns: Feels Safe At This Time Assistive Devices: None Review of Systems Review of Systems: All systems reviewed & are unremarkable except as noted in Subjective Physical Exam Constitutional: well nourished; no acute distress Respiratory: normal respiratory effort; no respiratory distress and no labored breathing Auscultation: no crackles, no rales, no rhonchi and no wheezes Cardiovascular: Rate/Rhythm: regular rate and regular rhythm Heart Sounds: normal S1 and normal S2; no murmur Palpation: normal PMI Vessels: no JVD Extremities: no edema Gastrointestinal (Abdomen): Inspection/Auscultation: abdomen normal to inspection and normal bowel sounds; abdomen not distended Percussion/Palpation: abdomen soft; abdomen nontender, no guarding and abdomen not rigid Neurologic: CN's II-XI intact bilaterally and moves all extremities; no focal motor deficits Psychiatric: A+Ox3, euthymic affect Results & Data ([facility]) Vital Signs (Past 12 Hours) Vital Signs Temp Pulse Pulse Resp BP BP BP 06/05/22 08:14 64 18 130/84 06/05/22 06:14 59 L 06/05/22 05:44 36.7 C 60 16 122/75 06/05/22 05:00 51 L 13 111/76 06/05/22 04:30 51 L 12 113/77 06/05/22 04:00 58 L 21 117/78 06/05/22 03:00 64 14 121/76 06/05/22 02:20 72 18 124/80 06/05/22 00:10 71 16 144/78 H 06/04/22 22:30 74 16 127/74 06/04/22 20:48 67 14 123/73 06/04/22 20:43 66 16 Pulse Ox O2 Del Method 06/05/22 08:14 98 Room Air 06/05/22 06:14 06/05/22 05:44 92 Room Air 06/05/22 05:00 98 Room Air 06/05/22 04:30 98 Room Air 06/05/22 04:00 97 Room Air 06/05/22 03:00 97 Room Air 06/05/22 02:20 100 Room Air 06/05/22 00:10 99 Room Air 06/04/22 22:30 100 Room Air 06/04/22 20:48 99 Room Air 06/04/22 20:43 99 Room Air
--- NOTE | 2022-06-05 08:30 | Pre Anesthesia Assessment ---
Date of Service June 05, 2022 Pre Sedation Assessment Vital Signs Temp Pulse Pulse Resp BP Pulse Ox O2 Del Method 06/06/22 11:09 61 06/06/22 09:00 61 14 128/82 96 Room Air 06/06/22 08:00 61 06/06/22 08:00 54 L 16 116/76 94 Room Air 06/06/22 07:00 53 L 14 105/65 94 Room Air 06/06/22 06:19 57 L 12 105/67 95 Room Air 06/06/22 05:00 53 L 10 L 102/69 98 Room Air 06/06/22 04:00 51 L 14 97/64 L 95 Room Air 06/06/22 00:01 61 06/06/22 02:00 52 L 12 103/67 94 Room Air 06/06/22 03:00 53 L 12 100/63 98 Room Air 06/06/22 01:00 57 L 16 93/57 L 96 Room Air 06/06/22 00:00 56 L 12 101/67 93 Room Air 06/05/22 23:00 58 L 18 109/68 97 Room Air 06/05/22 22:00 60 15 106/63 96 Room Air 06/05/22 21:00 60 16 108/69 98 Room Air 06/05/22 20:00 62 14 118/69 97 Room Air 06/05/22 19:00 36.8 C 63 17 117/65 97 Room Air 06/05/22 18:34 68 16 110/70 98 Room Air 06/05/22 15:53 62 16 121/70 96 Room Air 06/05/22 15:16 61 12 98 Room Air 06/05/22 14:08 60 14 117/69 98 Room Air 06/05/22 12:36 56 L 14 94 Room Air Cardiovascular + regular rate and + regular rhythm + S1 normal and + S2 normal; no murmur + PMI normal no JVD no edema Respiratory + respiratory effort normal; no respiratory distress and no labored breathing no crackles, no rales, no rhonchi and no wheezes Pre-Sedation Airway Assessment Smoking Status: Never smoker Short, Thick Neck: No Thyromental Distance: > or= 3.5 Finger Breadths Oral Cavity: + WNL Mallampati Class: III ASA: ASA3 NPO Status Date of Last Intake of Fluids: 06/04/22 Date of Last Intake of Solid Food: 06/04/22 Procedure Planning Contraindications for Sedation: none Current Medications Reviewed: Yes Notes The planned sedation has been discussed with the patient. Informed Consent was obtained. I have identified the patient, determined the appropriateness of sedation and have assessed the patient immediately prior to the procedure. All medicine(s) and interventions are by my order.
--- NOTE | 2022-06-05 08:35 | CT Scan Report ---
CT angio chest PE protocol CT DOSE: 541.88 mGy.cm HISTORY: 56 years-old Male with ro PE. Acute shortness of breath TECHNIQUE: Multiple CTA images of the chest were obtained after the intravenous administration of 110 ml Optiray. Coronal and sagittal MIPS were obtained from the axial data set and were submitted for review. All measurements were obtained according to NASCET criteria. A dose lowering technique was u tilized adhering to the principles of ALARA. COMPARISON: Chest radiograph of same day FINDINGS: CTA: The heart is normal in size. Extensive coronary artery calcifications. Unremarkable thoracic aorta an d pulmonary artery. No pulmonary emboli are identified. CT CHEST: Unremarkable thyroid. No lymphadenopathy. No pneumothorax, pleural effusion, airspace consolidation o r overt pulmonary edema. No suspicious pulmonary nodules or masses identified. Central airways are pa tent. The spleen is mildly enlarged, 13.4 cm. 1.1 cm mid splenic hypodensity is indeterminate however favor ed to be benign. Cholecystectomy. There are a few tiny hypodense foci of the liver, too small to gino acterize. Soft tissues are within normal limits. There is no acute fracture identified. IMPRESSION: 1. Unremarkable CTA of the chest. No pulmonary emboli identified. 2. Extensive coronary artery calcifications. 3. Mild splenomegaly. ACT 112: Negative or not required by law. The above report was generated using voice recognition software. It may contain grammatical, syntax o r spelling errors. Electronically signed by: Kye Rios M.D. 06/05/2022 8:33 AM
[2022-06-05] MEDS ORDERED: METOPROLOL SUCC 25MG EXT REL TAB PO SCH (09:00)
--- NOTE | 2022-06-05 09:22 | Post Anesthesia Assessment ---
Date of Service June 05, 2022 Post Sedation Assessment Vital Signs Temp Pulse Pulse Resp BP Pulse Ox O2 Del Method 06/06/22 11:09 61 06/06/22 09:00 61 14 128/82 96 Room Air 06/06/22 08:00 61 06/06/22 08:00 54 L 16 116/76 94 Room Air 06/06/22 07:00 53 L 14 105/65 94 Room Air 06/06/22 06:19 57 L 12 105/67 95 Room Air 06/06/22 05:00 53 L 10 L 102/69 98 Room Air 06/06/22 04:00 51 L 14 97/64 L 95 Room Air 06/06/22 00:01 61 06/06/22 02:00 52 L 12 103/67 94 Room Air 06/06/22 03:00 53 L 12 100/63 98 Room Air 06/06/22 01:00 57 L 16 93/57 L 96 Room Air 06/06/22 00:00 56 L 12 101/67 93 Room Air 06/05/22 23:00 58 L 18 109/68 97 Room Air 06/05/22 22:00 60 15 106/63 96 Room Air 06/05/22 21:00 60 16 108/69 98 Room Air 06/05/22 20:00 62 14 118/69 97 Room Air 06/05/22 19:00 36.8 C 63 17 117/65 97 Room Air 06/05/22 18:34 68 16 110/70 98 Room Air 06/05/22 15:53 62 16 121/70 96 Room Air 06/05/22 15:16 61 12 98 Room Air 06/05/22 14:08 60 14 117/69 98 Room Air 06/05/22 12:36 56 L 14 94 Room Air Recovery Score Activity: Moves 4 extremities Respiration: Deep Breath/Cough Circulation: +/-20% PreAnes Value Consciousness: Arouseable (by name) Oxygen Saturation: > 92% On Room Air Discharge Sedation Level of Care: Phase I Post Sedation Plan On clinical assessment, the patient appears to have tolerated the sedation without complications. Patient is recovering as anticipated. Patient will continue to be monitored by nursing and may be discharged when sedation discharge criteria are met per below protocol. Upon Completions of procedure up to 15 minutes continue every 5 minute vital signs and the P.A.R. score; then discharge to a Phase I or Fast Track to Phase II per the following guidelines: * Discharge Patient to appropriate Phase II area if PAR is 8 or greater or return to pre- procedure baseline. The post - procedure orders will be as directed. * If PAR score is less than 8 or not return to pre-procedure baseline then patient will follow Phase I monitoring till PAR is reached for Phase II. The Phase I may be done in procedure room or may call to secure a Phase I area. * If naloxone or flumazenil are used for reversal, hold in Phase I for continued monitoring from when last reversal dose was given for a minimum of 60 minutes or longer pending the nurse and/or physician discretion of patient condition before discharge to Phase II. Please call the Sedation Physician to re-evaluate and complete post-note for discharge to Phase II area. Do NOT discharge from procedure sedation or Phase 1 until post- sedation evaluation note is complete by procedure /sedation MD Sedation Discharge Instructions to be given to the patient at discharge to home.
--- NOTE | 2022-06-05 09:30 | Cardiac Catheterization ---
Cardiac Cath Procedure Full Procedure Date June 05, 2022 Pre-Procedure Diagnosis Pre-Procedure Diagnosis: Non STEMI and CAD AUC Score AUC Score: 8 Post-Procedure Diagnosis Post-Procedure Diagnosis: Moderate CAD Procedure(s) Performed Procedure(s) Performed: Coronary Angiography and Left Heart Cath Group Billing Coordinator Hoang Pfeiffer DO Group Managing Director(s) Celestino RTR Estimated Blood Loss Estimated Blood Loss: 5cc Medication(s) Medication(s): Fentanyl, Heparin, Lidocaine 1%, Nicardipine, Nitroglycerin and Versed Summary of Findings There is a moderate sized mobile echolucency occupying the distal left main adjacent to the ostium of the ramus intermedius suggesting thrombus. The thrombus is nonocclusive. Left main: No angiographic disease. Thrombus as noted above. LAD: 30% proximal D1: Normal LCx: 40% proximal Patent mid circumflex stent 70% ostial OM1, small vessel (jailed by circumflex stent) 50% mid Lcx (jailed by circumflex stent extending into OM-2) Patent mid radius stent Long area of RCA stenting extending from the proximal through the mid segment. There is mild ISR up to 20%. Patent RPDA stent Patent RPL stent Hemodynamics Rest Ao:: 100/65/85 Final Ao: 104/61/80 LV: 104/-1/8 Recommendations Recommendations: Medical Therapy and/or Counseling (Systemic anticoagulation with IV heparin with plans for repeat coronary angiography in 48 to 72 hours) Specimens Specimens: None Radiation Exposure (mGy) 704 Contrast (mls) 35 Fluids (cc crystalloids) Fluids (cc crystalloids): 90 Nss Drains Drains: N/A Anesthesia Moderate sedation. Start 0856. End 0919. Sedation monitor: Daya TORRES Procedural Complication(s) None Disposition ICU I attest to the content of the Intraoperative Record and any orders documented therein. Any exceptions are noted below. ACC Data: Travel Registered Nurse Nicu Cardiac Status Clinical evaluation leading to the procedure 56 y/o patient presents with NSTEMI. CAD Presenation: Non STEMI Anginal Classification: CCS IV STEMI OR Non-STEMI Symptom Onset Date: 06/04/22 Symptom Onset Time: 18:00 Thrombolytics: No Diagnostic Physicians Name: Hoang Pfeiffer DO Closure Device Recommendations: Medical Therapy and/or Counseling (Systemic anticoagulation with IV heparin with plans for repeat coronary angiography in 48 to 72 hours) Intraprocedure Events Significant Disection: No Perforation: No
[2022-06-05] MEDS ORDERED: Heparin IV Adult Wt-Based Standard WITH Bolus Protocol IV STA (09:58)
[2022-06-05 10:01] LABS: Chol HDL Ratio 3.1 (0-5); Magnesium 2.3 mg/dl (1.7-2.4); Phosphorus 3.9 mg/dl (2.5-4.9)
[2022-06-05] MEDS ORDERED: HEPARIN SOD (PORCINE) 1000 UNIT/ML IV ONE (10:14)
[2022-06-05] MEDS: ASPIRIN 81 MG ECTAB PO SCH (10:29)
[2022-06-05] MEDS: amLODIPine BESYLATE 5 MG TAB PO SCH (10:30)
[2022-06-05] MEDS: CITALOPRAM 20 MG TAB PO SCH (10:30)
[2022-06-05] MEDS: METOPROLOL SUCC 25MG EXT REL TAB PO SCH ×2 (10:31→21:28)
[2022-06-05 11:28] LABS: Partial Thromboplastin Ratio > 5.1
[2022-06-05 11:33] LABS: Partial Thromboplastin Time > 139.0 Seconds (21.0-31.0)
[2022-06-05 12:27] LABS: Partial Thromboplastin Ratio 2.5
[2022-06-05 12:45] LABS: Partial Thromboplastin Time 69.1 Seconds (21.0-31.0)
[2022-06-05] MEDS: PANTOprazole 40 MG in SYRINGE 0 ML IV SCH (14:10)
--- NOTE | 2022-06-05 14:21 | Hospitalist Progress Note ---
Date of Service June 05, 2022 Assessment & Plan (1) Chest pain: Plan NSTEMI CAD S/P stents --S/P Cardiac Cath:There is a moderate sized mobile echolucency occupying the distal left main adjacent to the ostium of the ramus intermedius suggesting thrombus. The thrombus is nonocclusive. Left main: No angiographic disease. Thrombus as noted above. LAD: 30% proximal. D1: Normal. LCx: 40% proximal. Patent mid circumflex stent. 70% ostial OM1, small vessel (jailed by circumflex stent). 50% mid Lcx (jailed by circumflex stent extending into OM-2).Patent mid radius stent. Long area of RCA stenting extending from the proximal through the mid segment. There is mild ISR up to 20%. Patent RPDA stent. Patent RPL stent . -- Appreciate cardiology input Started on IV heparin Continue aspirin, statin, metoprolol Hyperlipidemia On statin Hypertension On Amlodipine, metoprolol DVT Px: IV heparin Code Status Full code Admission and Anticipated Discharge Date Admission Date: June 05, 2022 Subjective Patient is seen and examined at bedside Had cardiac catheterization earlier today Chest pain is resolved Denies any dizziness, nausea, abdominal pain, dyspnea No other complaints Review of Systems Review of Systems: All systems reviewed & are unremarkable except as noted in Subjective Physical Exam Physical Exam: Physical Exam: Vitals signs as noted above General Appearance:Moderately built and nourished, no apparent distress Head: normocephalic, Atraumatic Eyes: normal inspection, EOMI Neck: supple, Trachea midline Respiratory/Chest: Normal breath sounds, CTA, No accessory muscle use Cardiovascular: S1, S2, No murmur Abdomen/GI:Soft, Non tender, Bowel sounds present Extremities/Musculoskeletal:normal inspection, no edema Neurologic/Psych:AAOX3, grossly no focal neurological deficits Skin: normal color, warm Results & Data Results & Data ([facility]) Vital Signs (Past 12 Hours) Vital Signs Temp Pulse Pulse Resp BP BP BP 06/05/22 14:08 60 14 117/69 06/05/22 12:36 56 L 14 06/05/22 11:07 60 16 134/85 06/05/22 10:54 58 L 14 123/82 06/05/22 10:20 60 12 123/82 06/05/22 10:05 62 16 125/76 06/05/22 09:50 56 L 16 112/76 06/05/22 08:00 65 14 126/85 06/05/22 07:00 57 L 14 115/57 L 06/05/22 08:14 64 18 130/84 06/05/22 06:14 59 L 06/05/22 05:44 36.7 C 60 16 122/75 06/05/22 05:00 51 L 13 111/76 06/05/22 04:30 51 L 12 113/77 06/05/22 04:00 58 L 21 117/78 06/05/22 03:00 64 14 121/76 06/05/22 02:20 72 18 124/80 Pulse Ox O2 Del Method 06/05/22 14:08 98 Room Air 06/05/22 12:36 94 Room Air 06/05/22 11:07 99 Room Air 06/05/22 10:54 98 Room Air 06/05/22 10:20 99 06/05/22 10:05 98 Room Air 06/05/22 09:50 98 Room Air 06/05/22 08:00 100 Room Air 06/05/22 07:00 97 Room Air 06/05/22 08:14 98 Room Air 06/05/22 06:14 06/05/22 05:44 92 Room Air 06/05/22 05:00 98 Room Air 06/05/22 04:30 98 Room Air 06/05/22 04:00 97 Room Air 06/05/22 03:00 97 Room Air 06/05/22 02:20 100 Room Air Laboratory Results Short CBC 06/04/22 Range/Units 20:00 WBC 7.83 (4.8-10.8) K/ul Hgb 14.7 (14.0-18.0) g/dl Hct 42.3 (40.1-51.0) % Plt Count 195 (130-400) K/uL BMP 06/04/22 06/05/22 20:00 05:41 Sodium 136 139 Potassium 4.2 4.2 Chloride 102 105 Carbon Dioxide 26 31 BUN 18 12 Creatinine 1.20 0.91 Glucose 111 H 100 H Calcium 9.1 8.6
--- NOTE | 2022-06-05 18:56 | Electrocardiogram Report ---
Test Reason : Blood Pressure : / mmHG Vent. Rate : 067 BPM Atrial Rate : 067 BPM P-R Int : 182 ms QRS Dur : 090 ms QT Int : 416 ms P-R-T Axes : 058 -08 006 degrees QTc Int : 439 ms Normal sinus rhythm Nonspecific ST abnormality Abnormal ECG When compared with ECG of 08-JUN-2009 18:46, ST now depressed in Anterior leads Confirmed by Cezar Savage ([id number] on 06/05/2022 6:55:47 PM Referred By: NO PCP Confirmed By:Refugio Savage
--- NOTE | 2022-06-05 19:01 | Electrocardiogram Report ---
Test Reason : Blood Pressure : / mmHG Vent. Rate : 066 BPM Atrial Rate : 066 BPM P-R Int : 176 ms QRS Dur : 086 ms QT Int : 434 ms P-R-T Axes : 049 -01 040 degrees QTc Int : 454 ms Poor data quality, interpretation may be adversely affected Normal sinus rhythm Normal ECG When compared with ECG of 04-JUN-2022 20:40, (unconfirmed) No significant change was found Confirmed by Cezar Savage ([id number] on 06/05/2022 7:00:39 PM Referred By: NO PCP Confirmed By:Refugio Savage
--- NOTE | 2022-06-05 19:03 | Electrocardiogram Report ---
Test Reason : Blood Pressure : / mmHG Vent. Rate : 058 BPM Atrial Rate : 058 BPM P-R Int : 184 ms QRS Dur : 096 ms QT Int : 460 ms P-R-T Axes : 046 032 055 degrees QTc Int : 451 ms Poor data quality, interpretation may be adversely affected Sinus bradycardia Abnormal ECG Confirmed by Cezar Savage ([id number]) on 06/05/2022 7:02:42 PM Referred By: NO PCP Confirmed By:Refugio Savage
--- NOTE | 2022-06-05 19:06 | Electrocardiogram Report ---
Test Reason : Blood Pressure : / mmHG Vent. Rate : 067 BPM Atrial Rate : 067 BPM P-R Int : 176 ms QRS Dur : 088 ms QT Int : 420 ms P-R-T Axes : 039 -06 042 degrees QTc Int : 443 ms Normal sinus rhythm Normal ECG When compared with ECG of 04-JUN-2022 19:55, (unconfirmed) No significant change was found Confirmed by Cezar Savage ([id number] on 06/05/2022 7:05:30 PM Referred By: NO PCP Confirmed By:Refugio Savage
--- NOTE | 2022-06-05 19:07 | Electrocardiogram Report ---
Test Reason : Blood Pressure : / mmHG Vent. Rate : 062 BPM Atrial Rate : 062 BPM P-R Int : 188 ms QRS Dur : 090 ms QT Int : 454 ms P-R-T Axes : 042 012 074 degrees QTc Int : 460 ms Normal sinus rhythm Normal ECG When compared with ECG of 05-JUN-2022 06:10, (unconfirmed) Criteria for Septal infarct are no longer Present Confirmed by Cezar Savage ([id number] on 06/05/2022 7:06:59 PM Referred By: NO PCP Confirmed By:Refugio Savage
[2022-06-05 19:46] LABS: Partial Thromboplastin Ratio 3.2
[2022-06-05 20:10] LABS: Partial Thromboplastin Time 88.9 Seconds (21.0-31.0)
[2022-06-05] MEDS: ATORVASTATIN 40 MG TAB PO SCH (21:28)
[2022-06-06] MEDS: Heparin Adult STANDARD Wt-Based Dextrose 5% 25,000 units/500 mL IV SCH ×2 (00:09→22:03)
[2022-06-06] MEDS: NITROGLYCERIN 2% OINTMENT 30GM TUBE EXT SCH ×4 (04:50→22:05)
--- NOTE | 2022-06-06 08:31 | Critical Care Progress Note ---
Date of Service June 06, 2022 Assessment & Plan (1) Admitted to intensive care unit: Plan: Impression: 56-year-old male with extensive cardiac history presents to the ICU following an episode of chest pain and significantly elevated troponin. Neuro - [facility] ICU: Negative -- Anxiety/depression Continue with citalopram Cardiac - NSTEMI: -No ST elevation on EKG. Troponin 31,000. Echo showed small apical wall motion abnormality. Was given ASA, Nitropaste, and started on heparin drip. Sent for cardiac cath (06/05/21). -Cardiac catheterization: moderate sized mobile echolucency occupying the distal left main adjacent to the ostium of the ramus intermedius suggesting thrombus.The thrombus is nonocclusive. -Cardiology recommends medical Therapy and/or Counseling (Systemic anticoagulation with IV heparin with plans for repeat coronary angiography in 48 to 72 hours- scheduled 06/08/21) -Continue ASA, statin, beta-sonia, heparin drip, nitro paste. -Continuous monitor on telemetry -Consider changing amlodipine to NAM inhibitor prior to discharge -- Coronary artery disease History of 7 stents placed back in 2019 He was taken off P2Y twelve 1 year after the stent was placed approximately 2020 --Hypertension Continue with Norvasc and beta-sonia Respiratory - No history of pulmonary disease, maintain oxygen saturation on room air. Continuous monitoring pulse ox GI - Plan for npo midnight prior to repeat catheterization RENAL/LYTES - Monitor BUNs/creatinine Avoid nephrotoxic medications - Strict I/O's ENDO - Continue with ICU hyperglycemic protocol HEME - H&H stable, monitor routine CBCs ID - No indication for infectious process at this time --Prophylaxis VTE: Heparin drip GI: Pantoprazole Lines: Peripheral Diet: Cardiac Dispo: Patient is hemodynamically stable and awaiting repeat cath on . Okay to downgrade to PCU floor at this time. (2) CAD (coronary artery disease): (3) NSTEMI (non-ST elevated myocardial infarction): (4) Elevated troponin: (5) Chest pain: (6) HTN (hypertension): (7) Anxiety: Admission and Anticipated Discharge Date Admission Date: June 05, 2022 Supervising Physician Co-Signing Physician Notes Dr. Jett was the resident-physician during care of patient. I separately evaluated patient for talamantes portions of the history and the exam. I was present during the critical portion of medical decision making, and I discussed the case with the resident. I generally agree with the findings and plan except for any additions/exceptions noted. Patient seen and examined at bedside. No acute distress, no adverse events overnight. Patient's blood pressure systolic was in the 120s at the time of examination with heart rate in the low 60s. Denies any chest pain, no dizziness, no palpitation. Fair appetite. No nausea or vomiting. Positive bowel movement. Does complain of mild headache which went away on its own. Constitutional: No acute distress HEENT: EOMI, PERRLA Respiratory system: Good air entry bilaterally, no wheeze, no rhonchi, no crackles CVS: S1-S2 positive, no murmurs or gallops Abdomen: Soft, nontender, nondistended, positive bowel sounds x4 Extremities: +2 pulses bilaterally radialis/ dorsalis pedis, no cyanosis, no edema Neuro: Awake alert oriented x3 Psych: Normal mood and affect G/U: No Reddy Plan: Continue with heparin drip Continue with beta-sonia, aspirin and statin. Plavix to be restarted today Cardiology plans to do another cath on , 06/08/2022 Patient hemodynamically stable to be downgrade to telemetry Case was discussed with Dr. Rowe Please note the above document was generated using voice recognition software. It may contain grammatical, syntax or spelling errors.Any formal questions or concerns about the content, text or information contained within the body of this dictation should be directly addressed to the provider for clarification. Subjective Patient seen at bedside this morning. Mild headache last night but self resolved without medication. Otherwise doing well, denies chest pain, N/V, sob, abd pain, fatigue. Passing gas and had BM. Scheduled for repeat cath this upcoming . Review of Systems Review of Systems: All systems reviewed & are unremarkable except as noted in HPI & below Physical Exam Physical Exam: Constitutional: No acute distress HEENT: EOMI, PERRLA Respiratory system: Good air entry bilaterally, no wheeze, no rhonchi, no crackles CVS: S1-S2 positive, no murmurs or gallops Abdomen: Soft, nontender, nondistended, positive bowel sounds x4 Extremities: +2 pulses bilaterally radialis/ dorsalis pedis, no cyanosis, no edema Neuro: Awake alert oriented x3 Psych: Normal mood and affect G/U: No Reddy Skin: no rashes, warm, dry Lymphatic: no cervical or axillary lymphadenopathy Results & Data Results & Data ([facility]) Vital Signs (Past 12 Hours) Vital Signs Pulse Pulse Resp BP Pulse Ox O2 Del Method 06/06/22 08:00 54 L 16 116/76 94 Room Air 06/06/22 07:00 53 L 14 105/65 94 Room Air 06/06/22 06:19 57 L 12 105/67 95 Room Air 06/06/22 05:00 53 L 10 L 102/69 98 Room Air 06/06/22 04:00 51 L 14 97/64 L 95 Room Air 06/06/22 00:01 61 06/06/22 02:00 52 L 12 103/67 94 Room Air 06/06/22 03:00 53 L 12 100/63 98 Room Air 06/06/22 01:00 57 L 16 93/57 L 96 Room Air 06/06/22 00:00 56 L 12 101/67 93 Room Air 06/05/22 23:00 58 L 18 109/68 97 Room Air 06/05/22 22:00 60 15 106/63 96 Room Air 06/05/22 21:00 60 16 108/69 98 Room Air Laboratory Results 06/05/22 06/05/22 06/05/22 Range/Units 18:55 11:52 11:52 APTT 88.9 H* 69.1 H* (21.0-31.0) Seconds PTT Ratio 3.2 2.5 Lupus Anticoagulant LA PTT Screen Lupus Anticoag aPTT Dil Dante Viper Venom Protein C Activity Protein S Activity Antithrombin III Activ Factor V Leiden Mutat Factor V Leiden Interp Phosphorus (2.5-4.9) mg/dl Magnesium (1.7-2.4) mg/dl Troponin I High Sens 30310.8 H* D (0-20) pg/ml Triglycerides (0-150) mg/dl Cholesterol (0-200) mg/dl LDL Cholesterol, Calc mg/dl VLDL Cholesterol, Calc (0-30) mg/dl HDL Cholesterol mg/dl Cholesterol/HDL Ratio (0-5) Homocysteine Beta-2-GPI IgG Ab Beta-2-GPI IgM Ab Anti-Cardiolipin IgG Ab Anti-Cardiolipin IgM Ab Prothrombin Gene Mutate Prothromb Gene Comment 06/05/22 06/05/22 06/05/22 Range/Units 10:35 10:35 10:35 APTT (21.0-31.0) Seconds PTT Ratio Lupus Anticoagulant Pending LA PTT Screen Lupus Anticoag aPTT Pending Dil Dante Viper Venom Pending Protein C Activity Pending Protein S Activity Antithrombin III Activ Pending Factor V Leiden Mutat Pending Factor V Leiden Interp Pending Phosphorus (2.5-4.9) mg/dl Magnesium (1.7-2.4) mg/dl Troponin I High Sens (0-20) pg/ml Triglycerides (0-150) mg/dl Cholesterol (0-200) mg/dl LDL Cholesterol, Calc mg/dl VLDL Cholesterol, Calc (0-30) mg/dl HDL Cholesterol mg/dl Cholesterol/HDL Ratio (0-5) Homocysteine Pending Beta-2-GPI IgG Ab Beta-2-GPI IgM Ab Anti-Cardiolipin IgG Ab Anti-Cardiolipin IgM Ab Prothrombin Gene Mutate Pending Prothromb Gene Comment Pending 06/05/22 06/05/22 06/05/22 Range/Units 10:35 10:35 05:41 APTT > 139.0 H* (21.0-31.0) Seconds PTT Ratio > 5.1 Lupus Anticoagulant LA PTT Screen Pending Lupus Anticoag aPTT Dil Dante Viper Venom Protein C Activity Protein S Activity Pending Antithrombin III Activ Factor V Leiden Mutat Factor V Leiden Interp Phosphorus 3.9 (2.5-4.9) mg/dl Magnesium 2.3 (1.7-2.4) mg/dl Troponin I High Sens (0-20) pg/ml Triglycerides 83 (0-150) mg/dl Cholesterol 136 (0-200) mg/dl LDL Cholesterol, Calc 75 mg/dl VLDL Cholesterol, Calc 17 (0-30) mg/dl HDL Cholesterol 44 mg/dl Cholesterol/HDL Ratio 3.1 (0-5) Homocysteine Beta-2-GPI IgG Ab Pending Beta-2-GPI IgM Ab Pending Anti-Cardiolipin IgG Ab Pending Anti-Cardiolipin IgM Ab Pending Prothrombin Gene Mutate Prothromb Gene Comment Resident Activity Tracking Resident Involvement: Resident Care Provided Care Provided: Adult [facility]
[2022-06-06] MEDS: amLODIPine BESYLATE 5 MG TAB PO SCH (08:57)
[2022-06-06] MEDS: CITALOPRAM 20 MG TAB PO SCH (08:57)
[2022-06-06] MEDS: METOPROLOL SUCC 25MG EXT REL TAB PO SCH ×2 (08:57→22:02)
[2022-06-06] MEDS: ASPIRIN 81 MG ECTAB PO SCH (08:57)
[2022-06-06 09:02] LABS: Hematocrit (blood only) 40.3 % (40.1-51.0); Hemoglobin 13.8 g/dl (14.0-18.0); Mean Corpuscular Hemoglobin 29.3 pg (25.0-34.0); Mean Corpuscular Hgb Conc 34.2 g/dL (32.0-36.0); Mean Corpuscular Volume 85.6 fL (80.0-100.0); Mean Platelet Volume 9.6 fL (9.4-12.4); Platelet Count 166 K/uL (130-400); RDW Coefficient of Variation 12.3 % (11.5-14.5); RDW Standard Deviation 38.3 fL (36.4-46.3); Red Blood Count 4.71 M/uL (4.63-6.08); White Blood Count 5.49 K/ul (4.8-10.8)
[2022-06-06] MEDS: PANTOprazole 40 MG in SYRINGE 0 ML IV SCH (09:09)
[2022-06-06 09:26] LABS: BUN Creatinine Ratio 16.5 (10-20); Calcium 8.5 mg/dl (8.5-10.1); Creatinine Clr Calc Pharmacy 95.6 ml/min; Est GFR (African American) 102.2 ml/min; Est GFR (Non-African American) 88.1 ml/min; Magnesium 2.2 mg/dl (1.7-2.4); Potassium 4.2 mmol/L (3.5-5.1)
[2022-06-06 09:29] LABS: Partial Thromboplastin Ratio 3.9
[2022-06-06 11:20] LABS: Estimated Average Glucose 108 mg/dl; Hemoglobin A1C 5.4 % (4.5-5.6)
--- NOTE | 2022-06-06 11:36 | Cardiology Progress Note ---
Date of Service June 06, 2022 Assessment & Plan (1) NSTEMI (non-ST elevated myocardial infarction): (2) CAD (coronary artery disease): (3) HTN (hypertension): (4) Coronary artery thrombosis: Plan 56-year-old patient present 06/04/2022 with NSTEMI. Cardiac catheterization performed 06/05/2022 demonstrating coronary thrombus with patent RCA, RPDA, RPL, left circumflex, and ramus intermedius stents. Continue IV heparin at this time. Plan repeat coronary angiography on , 06/08/2022 for reevaluation of coronary thrombus. Case reviewed with interventional cardiology. Consideration for ramus intermedius and or LAD PCI pending repeat angiography. Restart Plavix today. Continue aspirin, amlodipine, atorvastatin, metoprolol succinate as previously ordered. Admission and Anticipated Discharge Date Admission Date: June 05, 2022 Subjective Patient seen examined at bedside. No recurrent chest discomfort overnight. IV heparin currently on hold due to supratherapeutic APTT. No signs/symptoms of GI/ blood loss. No right wrist ecchymosis or hematoma. Patient admits to being anxious otherwise, offers no concerns/complaints. Review of Systems Review of Systems: All systems reviewed & are unremarkable except as noted in Subjective Physical Exam Constitutional: well nourished; no acute distress Respiratory: normal respiratory effort; no respiratory distress and no labored breathing Auscultation: no crackles, no rales, no rhonchi and no wheezes Cardiovascular: Rate/Rhythm: regular rate and regular rhythm Heart Sounds: normal S1 and normal S2; no murmur Palpation: normal PMI Vessels: no JVD Extremities: no edema Gastrointestinal (Abdomen): Inspection/Auscultation: abdomen normal to inspection and normal bowel sounds; abdomen not distended Percussion/Palpation: abdomen soft; abdomen nontender, no guarding and abdomen not rigid Neurologic: CN's II-XI intact bilaterally and moves all extremities; no focal motor deficits Psychiatric: A+Ox3, euthymic affect Results & Data ([facility]) Vital Signs (Past 12 Hours) Vital Signs Pulse Pulse Resp BP Pulse Ox O2 Del Method 06/06/22 11:09 61 06/06/22 09:00 61 14 128/82 96 Room Air 06/06/22 08:00 61 06/06/22 08:00 54 L 16 116/76 94 Room Air 06/06/22 07:00 53 L 14 105/65 94 Room Air 06/06/22 06:19 57 L 12 105/67 95 Room Air 06/06/22 05:00 53 L 10 L 102/69 98 Room Air 06/06/22 04:00 51 L 14 97/64 L 95 Room Air 06/06/22 00:01 61 06/06/22 02:00 52 L 12 103/67 94 Room Air 06/06/22 03:00 53 L 12 100/63 98 Room Air 06/06/22 01:00 57 L 16 93/57 L 96 Room Air 06/06/22 00:00 56 L 12 101/67 93 Room Air
[2022-06-06] MEDS ORDERED: CLOPIDOGREL BISULFATE 300 MG TAB PO STA (11:38)
--- NOTE | 2022-06-06 12:05 | Billing Data ---
Date of Service June 06, 2022 Coding Level of Care Code 98790 Subseq Hosp Care Lvl 2
--- NOTE | 2022-06-06 12:48 | Electrocardiogram Report ---
Test Reason : Blood Pressure : / mmHG Vent. Rate : 054 BPM Atrial Rate : 054 BPM P-R Int : 202 ms QRS Dur : 092 ms QT Int : 496 ms P-R-T Axes : 055 018 091 degrees QTc Int : 470 ms Sinus bradycardia Nonspecific T wave abnormality Abnormal ECG When compared with ECG of 05-JUN-2022 11:23, No significant change was found Confirmed by Jeff Ragsdale ([id number]) on 06/06/2022 12:47:58 PM Referred By: NO PCP Confirmed By:Jeff Ragsdale
--- NOTE | 2022-06-06 13:00 | Hospitalist Progress Note ---
Date of Service June 06, 2022 Assessment & Plan (1) Chest pain: Plan NSTEMI CAD S/P stents --S/P Cardiac Cath:There is a moderate sized mobile echolucency occupying the distal left main adjacent to the ostium of the ramus intermedius suggesting thrombus. The thrombus is nonocclusive. Left main: No angiographic disease. Thrombus as noted above. LAD: 30% proximal. D1: Normal. LCx: 40% proximal. Patent mid circumflex stent. 70% ostial OM1, small vessel (jailed by circumflex stent). 50% mid Lcx (jailed by circumflex stent extending into OM-2).Patent mid radius stent. Long area of RCA stenting extending from the proximal through the mid segment. There is mild ISR up to 20%. Patent RPDA stent. Patent RPL stent . -- Appreciate cardiology input Continue IV heparin Continue aspirin, statin, metoprolol Restarted Plavix today Plan for repeat cardiac catheterization as per Cardiology Anxiety Likely situational Ativan PRN Hyperlipidemia On statin Hypertension On Amlodipine, metoprolol DVT Px: IV heparin Code Status Full code Admission and Anticipated Discharge Date Admission Date: June 05, 2022 Subjective Patient is seen and examined at bedside States feeling anxious intermittently Patient denies any recurrence of chest pain Denies any dizziness, nausea, abdominal pain, dyspnea Plan to downgrade to PCU today Review of Systems Review of Systems: All systems reviewed & are unremarkable except as noted in Subjective Physical Exam Physical Exam: Physical Exam: Vitals signs as noted above General Appearance:Moderately built and nourished, no apparent distress Head: normocephalic, Atraumatic Eyes: normal inspection, EOMI Neck: supple, Trachea midline Respiratory/Chest: Normal breath sounds, CTA, No accessory muscle use Cardiovascular: S1, S2, No murmur Abdomen/GI:Soft, Non tender, Bowel sounds present Extremities/Musculoskeletal:normal inspection, no edema Neurologic/Psych:AAOX3, grossly no focal neurological deficits Skin: normal color, warm Results & Data Results & Data ([facility]) Vital Signs (Past 12 Hours) Vital Signs Pulse Pulse Resp BP Pulse Ox O2 Del Method 06/06/22 11:09 61 06/06/22 09:00 61 14 128/82 96 Room Air 06/06/22 08:00 61 06/06/22 08:00 54 L 16 116/76 94 Room Air 06/06/22 07:00 53 L 14 105/65 94 Room Air 06/06/22 06:19 57 L 12 105/67 95 Room Air 06/06/22 05:00 53 L 10 L 102/69 98 Room Air 06/06/22 04:00 51 L 14 97/64 L 95 Room Air 06/06/22 02:00 52 L 12 103/67 94 Room Air 06/06/22 03:00 53 L 12 100/63 98 Room Air 06/06/22 01:00 57 L 16 93/57 L 96 Room Air Laboratory Results Short CBC 06/06/22 Range/Units 08:46 WBC 5.49 (4.8-10.8) K/ul Hgb 13.8 L (14.0-18.0) g/dl Hct 40.3 (40.1-51.0) % Plt Count 166 (130-400) K/uL BMP 06/06/22 08:46 Sodium 139 Potassium 4.2 Chloride 107 Carbon Dioxide 28 BUN 16 Creatinine 0.97 Glucose 95 Calcium 8.5
[2022-06-06 15:50] LABS: Partial Thromboplastin Time 56.3 Seconds (21.0-31.0)
[2022-06-06] MEDS: ATORVASTATIN 40 MG TAB PO SCH (22:01)
[2022-06-07] MEDS: NITROGLYCERIN 2% OINTMENT 30GM TUBE EXT SCH ×2 (04:21→10:01)
[2022-06-07 05:44] LABS: Hematocrit (blood only) 36.8 % (40.1-51.0); Hemoglobin 13.1 g/dl (14.0-18.0); Mean Corpuscular Hgb Conc 35.6 g/dL (32.0-36.0); Mean Corpuscular Volume 84.2 fL (80.0-100.0); Mean Platelet Volume 9.2 fL (9.4-12.4); Platelet Count 150 K/uL (130-400); RDW Coefficient of Variation 12.3 % (11.5-14.5); RDW Standard Deviation 37.2 fL (36.4-46.3); Red Blood Count 4.37 M/uL (4.63-6.08); White Blood Count 4.65 K/ul (4.8-10.8)
[2022-06-07 06:04] LABS: BUN Creatinine Ratio 17.7 (10-20); Calcium 8.2 mg/dl (8.5-10.1); Est GFR (African American) 84.9 ml/min; Est GFR (Non-African American) 73.3 ml/min; Potassium 3.9 mmol/L (3.5-5.1)
[2022-06-07 06:13] LABS: Partial Thromboplastin Ratio 2.4
[2022-06-07 06:22] LABS: Partial Thromboplastin Time 65.8 Seconds (21.0-31.0)
[2022-06-07] MEDS: METOPROLOL SUCC 25MG EXT REL TAB PO SCH ×2 (07:56→20:04)
[2022-06-07] MEDS: PANTOprazole 40 MG TAB PO SCH (07:57)
[2022-06-07] MEDS: amLODIPine BESYLATE 5 MG TAB PO SCH (07:57)
[2022-06-07] MEDS: ASPIRIN 81 MG ECTAB PO SCH (07:57)
[2022-06-07] MEDS: CITALOPRAM 20 MG TAB PO SCH (07:57)
[2022-06-07] MEDS: CLOPIDOGREL BISULFATE 75 MG TAB PO SCH (07:57)
--- NOTE | 2022-06-07 10:57 | Cardiology Progress Note ---
Date of Service June 07, 2022 Assessment & Plan (1) Coronary artery thrombosis: (2) NSTEMI (non-ST elevated myocardial infarction): (3) CAD (coronary artery disease): (4) HTN (hypertension): Plan 56-year-old patient present 06/04/2022 with NSTEMI. Cardiac catheterization performed 06/05/2022 demonstrating coronary thrombus with patent RCA, RPDA, RPL, left circumflex, and ramus intermedius stents. Continue IV heparin, aspirin and Plavix. Plan repeat coronary angiography on , 06/08/2022 for reevaluation of coronary thrombus. Case reviewed with interventional cardiology. Consideration for ramus intermedius and/or LAD PCI pending repeat angiography. Continue amlodipine, atorvastatin, metoprolol succinate as previously ordered. Discontinue topical nitrates. Admission and Anticipated Discharge Date Admission Date: June 05, 2022 Subjective Patient seen examined the bedside. No recurrent chest discomfort overnight. Telemetry feels sinus rhythm in the 60s. Clopidogrel restarted yesterday. IV heparin infusing. No signs/symptoms of GI/ blood loss. Review of Systems Review of Systems: All systems reviewed & are unremarkable except as noted in Subjective Physical Exam Constitutional: well nourished; no acute distress ENMT: Mallampati Class: III Respiratory: normal respiratory effort; no respiratory distress and no labored breathing Auscultation: no crackles, no rales, no rhonchi and no wheezes Cardiovascular: Rate/Rhythm: regular rate and regular rhythm Heart Sounds: normal S1 and normal S2; no murmur Palpation: normal PMI Vessels: no JVD Extremities: no edema Gastrointestinal (Abdomen): Inspection/Auscultation: abdomen normal to inspection and normal bowel sounds; abdomen not distended Percussion/Palpation: abdomen soft; abdomen nontender, no guarding and abdomen not rigid Neurologic: CN's II-XI intact bilaterally and moves all extremities; no focal motor deficits Psychiatric: A+Ox3, euthymic affect Results & Data ([facility]) Vital Signs (Past 12 Hours) Vital Signs Temp Pulse Pulse Pulse Resp BP BP 06/07/22 08:00 60 06/07/22 07:52 36.7 C 59 L 18 110/65 06/07/22 06:00 59 L 14 06/07/22 05:00 56 L 14 06/07/22 04:09 114/66 01/04/23 04:09 64 15 06/07/22 04:00 58 L 15 06/07/22 03:00 57 L 14 06/07/22 02:00 57 L 12 06/07/22 04:14 06/07/22 04:00 36.7 C 06/07/22 01:00 59 L 14 06/07/22 00:00 63 15 06/06/22 23:00 66 13 Pulse Ox O2 Del Method 06/07/22 08:00 Room Air 06/07/22 07:52 97 Room Air 06/07/22 06:00 06/07/22 05:00 97 06/07/22 04:09 06/07/22 04:09 06/07/22 04:00 06/07/22 03:00 06/07/22 02:00 06/07/22 04:14 97 Room Air 06/07/22 04:00 06/07/22 01:00 06/07/22 00:00 06/06/22 23:00
--- NOTE | 2022-06-07 13:27 | Hospitalist Progress Note ---
Date of Service June 07, 2022 Assessment & Plan (1) Chest pain: Plan NSTEMI CAD S/P stents --S/P Cardiac Cath:There is a moderate sized mobile echolucency occupying the distal left main adjacent to the ostium of the ramus intermedius suggesting thrombus. The thrombus is nonocclusive. Left main: No angiographic disease. Thrombus as noted above. LAD: 30% proximal. D1: Normal. LCx: 40% proximal. Patent mid circumflex stent. 70% ostial OM1, small vessel (jailed by circumflex stent). 50% mid Lcx (jailed by circumflex stent extending into OM-2).Patent mid radius stent. Long area of RCA stenting extending from the proximal through the mid segment. There is mild ISR up to 20%. Patent RPDA stent. Patent RPL stent . Continue IV heparin Continue aspirin, statin, metoprolol On Plavix Plan for repeat cardiac catheterization tomorrow Anxiety Likely situational Ativan PRN Hyperlipidemia On statin Hypertension On Amlodipine, metoprolol DVT Px: IV heparin Code Status Full code Admission and Anticipated Discharge Date Admission Date: June 05, 2022 Subjective Patient seen and examined at bedside. He is lying on the bed comfortably; not in any distress. He denies any recurrence of chest pain, shortness of breath, palpitation or dizziness. Telemetry shows sinus bradycardia with heart rate in 50s. Review of Systems Review of Systems: All systems reviewed & are unremarkable except as noted in Subjective Physical Exam Physical Exam: Physical Exam: Vitals signs as noted above General Appearance:Moderately built and nourished, no apparent distress Head: normocephalic, Atraumatic Eyes: normal inspection, EOMI Neck: supple, Trachea midline Respiratory/Chest: Normal breath sounds, CTA, No accessory muscle use Cardiovascular: S1, S2, No murmur Abdomen/GI:Soft, Non tender, Bowel sounds present Extremities/Musculoskeletal:normal inspection, no edema Neurologic/Psych:AAOX3, grossly no focal neurological deficits Skin: normal color, warm Results & Data Results & Data ([facility]) Vital Signs (Past 12 Hours) Vital Signs Temp Pulse Pulse Pulse Resp BP BP 06/07/22 11:37 36.7 C 61 18 124/73 06/07/22 08:00 60 06/07/22 07:52 36.7 C 59 L 18 110/65 06/07/22 06:00 59 L 14 06/07/22 05:00 56 L 14 06/07/22 04:09 114/66 06/07/22 04:09 64 15 06/07/22 04:00 58 L 15 06/07/22 03:00 57 L 14 06/07/22 02:00 57 L 12 06/07/22 04:14 06/07/22 04:00 36.7 C Pulse Ox O2 Del Method 06/07/22 11:37 98 Room Air 06/07/22 08:00 Room Air 06/07/22 07:52 97 Room Air 06/07/22 06:00 06/07/22 05:00 97 06/07/22 04:09 06/07/22 04:09 06/07/22 04:00 06/07/22 03:00 06/07/22 02:00 06/07/22 04:14 97 Room Air 06/07/22 04:00 Laboratory Results Laboratory Results WBC 4.65 K/ul (4.8-10.8) L 06/07/22 05:24 RBC 4.37 M/uL (4.63-6.08) L 06/07/22 05:24 Hgb 13.1 g/dl (14.0-18.0) L 06/07/22 05:24 Hct 36.8 % (40.1-51.0) L 06/07/22 05:24 MCV 84.2 fL (80.0-100.0) 06/07/22 05:24 MCH 30.0 pg (25.0-34.0) 06/07/22 05:24 MCHC 35.6 g/dL (32.0-36.0) 06/07/22 05:24 RDW Std Deviation 37.2 fL (36.4-46.3) 06/07/22 05:24 RDW Coeff of Jayson 12.3 % (11.5-14.5) 06/07/22 05:24 Plt Count 150 K/uL (130-400) 06/07/22 05:24 MPV 9.2 fL (9.4-12.4) L 06/07/22 05:24 Immature Gran % (Auto) 3.1 % 06/04/22 20:00 Neut % (Auto) 79.8 % 06/04/22 20:00 Lymph % (Auto) 9.7 % 06/04/22 20:00 Sebastian % (Auto) 6.5 % 06/04/22 20:00 Eos % (Auto) 0.5 % 06/04/22 20:00 Baso % (Auto) 0.4 % 06/04/22 20:00 Neut # (Auto) 6.25 K/uL (1.4-6.5) 06/04/22 20:00 Lymph # (Auto) 0.76 K/uL (1.2-3.4) L 06/04/22 20:00 Sebastian # (Auto) 0.51 K/uL (0.24-0.82) 06/04/22 20:00 Eos # (Auto) 0.04 K/uL (0-0.50) 06/04/22 20:00 Baso # (Auto) 0.03 K/uL (0-0.2) 06/04/22 20:00 Immature Gran # (Auto) 0.24 K/uL (0.00-0.02) H 06/04/22 20:00 PT 11.1 Seconds (9.0-12.0) 06/04/22 20:00 INR 1.0 (0.9-1.1) 06/04/22 20:00 APTT 65.8 Seconds (21.0-31.0) H* 06/07/22 05:24 PTT Ratio 2.4 06/07/22 05:24 D-Dimer 2080 ug/L FEU (0-500) H* 06/04/22 20:00 Sodium 139 mmol/L (136-145) 06/07/22 05:24 Potassium 3.9 mmol/L (3.5-5.1) 06/07/22 05:24 Chloride 107 mmol/L (98-107) 06/07/22 05:24 Carbon Dioxide 27 mmol/L (21-32) 06/07/22 05:24 Anion Gap 5 (3-11) 06/07/22 05:24 BUN 20 mg/dl (6-23) 06/07/22 05:24 Creatinine 1.13 mg/dl (0.6-1.4) 06/07/22 05:24 Est Cr Clr Drug Dosing 82.0 ml/min 06/07/22 05:24 Est GFR ( Amer) 84.9 ml/min 06/07/22 05:24 Est GFR (Non-Af Amer) 73.3 ml/min 06/07/22 05:24 BUN/Creatinine Ratio 17.7 (10-20) 06/07/22 05:24 Glucose 98 mg/dl (70-99(Fasting)) 06/07/22 05:24 Estimat Average Glucose 108 mg/dl 06/06/22 08:46 Hemoglobin A1c 5.4 % (4.5-5.6) 06/06/22 08:46 Calcium 8.2 mg/dl (8.5-10.1) L 06/07/22 05:24 Phosphorus 3.0 mg/dl (2.5-4.9) 06/06/22 08:46 Magnesium 2.2 mg/dl (1.7-2.4) 06/06/22 08:46 Troponin I High Sens 42498.8 pg/ml (0-20) H* D 06/05/22 11:52 Triglycerides 83 mg/dl (0-150) 06/05/22 05:41 Cholesterol 136 mg/dl (0-200) 06/05/22 05:41 LDL Cholesterol, Calc 75 mg/dl 06/05/22 05:41 VLDL Cholesterol, Calc 17 mg/dl (0-30) 06/05/22 05:41 HDL Cholesterol 44 mg/dl 06/05/22 05:41 Cholesterol/HDL Ratio 3.1 (0-5) 06/05/22 05:41 Lipase 30 U/L (11-82) 06/04/22 20:00 Nasal Screen MRSA (PCR) Negative (Negative) 06/05/22 05:55 SARS-CoV-2, RNA, NAAT NEGATIVE (NEGATIVE) 06/04/22 20:45 Impressions Chest X-Ray 06/04/22 20:25 XR chest 1V portable HISTORY: 56 years-old Male Chest pain, nonspecific COMPARISON: CTA chest of same day TECHNIQUE: AP view of the chest FINDINGS: Cardiomediastinal and hilar silhouettes are within normal limits. No pneumothorax, pleural effusion, airspace consolidation or overt pulmonary edema. Bones of the chest appear grossly intact. Cholecystectomy. IMPRESSION: No acute process. ACT 112: Negative or not required by law. The above report was generated using voice recognition software. It may contain grammatical, syntax or spelling errors. Electronically signed by: Kye Rios M.D. 06/05/2022 6:45 AM Chest CTA 06/04/22 21:08 CT angio chest PE protocol CT DOSE: 541.88 mGy.cm HISTORY: 56 years-old Male with ro PE. Acute shortness of breath TECHNIQUE: Multiple CTA images of the chest were obtained after the intravenous administration of 110 ml Optiray. Coronal and sagittal MIPS were obtained from the axial data set and were submitted for review. All measurements were obtained according to NASCET criteria. A dose lowering technique was utilized adhering to the principles of ALARA. COMPARISON: Chest radiograph of same day FINDINGS: CTA: The heart is normal in size. Extensive coronary artery calcifications. Unremarkable thoracic aorta and pulmonary artery. No pulmonary emboli are identified. CT CHEST: Unremarkable thyroid. No lymphadenopathy. No pneumothorax, pleural effusion, airspace consolidation or overt pulmonary edema. No suspicious pulmonary nodules or masses identified. Central airways are patent. The spleen is mildly enlarged, 13.4 cm. 1.1 cm mid splenic hypodensity is indeterminate however favored to be benign. Cholecystectomy. There are a few tiny hypodense foci of the liver, too small to characterize. Soft tissues are within normal limits. There is no acute fracture identified. IMPRESSION: 1. Unremarkable CTA of the chest. No pulmonary emboli identified. 2. Extensive coronary artery calcifications. 3. Mild splenomegaly. ACT 112: Negative or not required by law. The above report was generated using voice recognition software. It may contain grammatical, syntax or spelling errors. Electronically signed by: Kye Rios M.D. 06/05/2022 8:33 AM
--- NOTE | 2022-06-07 15:02 | Electrocardiogram Report ---
Test Reason : Blood Pressure : / mmHG Vent. Rate : 060 BPM Atrial Rate : 060 BPM P-R Int : 188 ms QRS Dur : 086 ms QT Int : 438 ms P-R-T Axes : 059 028 090 degrees QTc Int : 438 ms Normal sinus rhythm Normal ECG When compared with ECG of 06-JUN-2022 05:00, No significant change was found Confirmed by Jeff Ragsdale ([id number]) on 06/07/2022 3:01:30 PM Referred By: NO PCP Confirmed By:Jeff Ragsdale
[2022-06-07] MEDS: ATORVASTATIN 40 MG TAB PO SCH (20:04)
[2022-06-07] MEDS: Heparin Adult STANDARD Wt-Based Dextrose 5% 25,000 units/500 mL IV SCH (20:04)
[2022-06-07] MEDS: LORazepam 0.5 MG TAB PO PRN (22:16)
[2022-06-08 05:11] LABS: Hematocrit (blood only) 39.4 % (40.1-51.0); Hemoglobin 13.7 g/dl (14.0-18.0); Mean Corpuscular Hemoglobin 29.7 pg (25.0-34.0); Mean Corpuscular Hgb Conc 34.8 g/dL (32.0-36.0); Mean Corpuscular Volume 85.5 fL (80.0-100.0); Mean Platelet Volume 9.5 fL (9.4-12.4); Platelet Count 159 K/uL (130-400); RDW Coefficient of Variation 12.3 % (11.5-14.5); RDW Standard Deviation 37.9 fL (36.4-46.3); Red Blood Count 4.61 M/uL (4.63-6.08); White Blood Count 5.11 K/ul (4.8-10.8)
[2022-06-08 05:37] LABS: Partial Thromboplastin Ratio 2.3
[2022-06-08 05:49] LABS: Partial Thromboplastin Time 62.8 Seconds (21.0-31.0)
[2022-06-08 05:54] LABS: BUN Creatinine Ratio 20.6 (10-20); Calcium 8.8 mg/dl (8.5-10.1); Creatinine Clr Calc Pharmacy 95.6 ml/min; Est GFR (African American) 102.2 ml/min; Est GFR (Non-African American) 88.1 ml/min
[2022-06-08 05:57] LABS: Anti-Thrombin III Activity 100 % normal (80-135)
[2022-06-08] MEDS: CLOPIDOGREL BISULFATE 75 MG TAB PO SCH (08:36)
[2022-06-08] MEDS: CITALOPRAM 20 MG TAB PO SCH (08:36)
[2022-06-08] MEDS: METOPROLOL SUCC 25MG EXT REL TAB PO SCH ×2 (08:36→20:57)
[2022-06-08] MEDS: ASPIRIN 81 MG ECTAB PO SCH (08:37)
[2022-06-08] MEDS: PANTOprazole 40 MG TAB PO SCH (08:37)
[2022-06-08] MEDS: amLODIPine BESYLATE 5 MG TAB PO SCH (08:37)
[2022-06-08 09:08] LABS: Anti Cardiolipin Ab IgG <2.0 GPL-U/mL; Anti Cardiolipin Ab IgM <2.0 MPL-U/mL; B2 Glycoprotein IgG <2.0 U/mL (<20.0); B2 Glycoprotein IgM 3.6 U/mL (<20.0); PTT LA Screen >200 sec (<=40); Protein S Functional(Activity) 71 % normal (70-150)
[2022-06-08] MEDS ORDERED: [UNRECOGNIZED DRUG - REMARK] ONE (10:00)
--- NOTE | 2022-06-08 10:24 | Cardiology Progress Note ---
Date of Service June 08, 2022 Assessment & Plan (1) Coronary artery thrombosis: (2) NSTEMI (non-ST elevated myocardial infarction): (3) CAD (coronary artery disease): (4) HTN (hypertension): Plan 56-year-old patient present 06/04/2022 with NSTEMI. Cardiac catheterization performed 06/05/2022 demonstrating coronary thrombus near the ostium of the ramus intermedius. Patent RCA, RPDA, RPL, left circumflex, and ramus intermedius stents. Repeat coronary angiography today. Hold IV heparin at 10 AM. Continue aspirin and Plavix. Case reviewed with interventional cardiology. Consideration for ramus intermedius and/or LAD PCI pending repeat angiography. Continue amlodipine, atorvastatin, metoprolol succinate as previously ordered. Repeat lupus anticoagulant in the outpatient setting when off anticoagulation. Admission and Anticipated Discharge Date Admission Date: June 05, 2022 Subjective Patient seen examined the bedside. No recurrent chest discomfort overnight. Telemetry reveals sinus rhythm and sinus bradycardia. Hypercoagulable labs have partially resulted. Lupus anticoagulant nondiagnostic due to heparin given during cardiac catheterization. Protein C&S activity are normal. Antithrombin III activity normal. Factor V Leiden mutation pending. Review of Systems Review of Systems: All systems reviewed & are unremarkable except as noted in Subjective Physical Exam Constitutional: well nourished; no acute distress ENMT: Mallampati Class: III Respiratory: normal respiratory effort; no respiratory distress and no labored breathing Auscultation: no crackles, no rales, no rhonchi and no wheezes Cardiovascular: Rate/Rhythm: regular rate and regular rhythm Heart Sounds: normal S1 and normal S2; no murmur Palpation: normal PMI Vessels: no JVD Extremities: no edema Gastrointestinal (Abdomen): Inspection/Auscultation: abdomen normal to inspection and normal bowel sounds; abdomen not distended Percussion/Palpation: abdomen soft; abdomen nontender, no guarding and abdomen not rigid Neurologic: CN's II-XI intact bilaterally and moves all extremities; no focal motor deficits Psychiatric: A+Ox3, euthymic affect Results & Data ([facility]) Vital Signs (Past 12 Hours) Vital Signs Temp Pulse Pulse Resp BP Pulse Ox O2 Del Method 06/08/22 07:59 36.6 C 06/08/22 00:01 60 06/08/22 03:43 36.4 C L 56 L 14 109/67 99 Room Air 06/07/22 23:35 36.8 C 60 16 128/62 98 Room Air
--- NOTE | 2022-06-08 11:45 | Pre Anesthesia Assessment ---
Date of Service June 08, 2022 Pre Sedation Assessment Vital Signs Temp Pulse Pulse Pulse Resp BP BP 06/08/22 11:49 36.5 C 06/08/22 11:40 64 18 96/70 L 06/08/22 10:00 55 L 10 L 06/08/22 08:32 122/73 06/08/22 08:32 60 8 L 06/08/22 08:00 54 L 20 06/08/22 06:00 50 L 0 L 06/08/22 04:00 55 L 22 06/08/22 03:15 109/67 06/08/22 03:15 61 20 06/08/22 02:00 55 L 12 06/08/22 00:00 59 L 9 L 06/07/22 23:03 128/62 06/07/22 23:03 60 14 06/07/22 22:00 63 20 06/07/22 20:00 66 7 L 06/07/22 18:00 66 16 06/07/22 16:33 64 13 06/07/22 16:33 102/67 06/07/22 16:00 61 18 06/07/22 14:00 63 14 06/08/22 07:59 36.6 C 06/08/22 00:01 60 06/08/22 03:43 36.4 C L 56 L 14 06/07/22 23:35 36.8 C 60 16 06/07/22 19:14 36.9 C 66 18 06/07/22 16:40 36.7 C 69 18 102/67 BP Pulse Ox O2 Del Method 06/08/22 11:49 06/08/22 11:40 98 Room Air 06/08/22 10:00 06/08/22 08:32 06/08/22 08:32 99 06/08/22 08:00 06/08/22 06:00 06/08/22 04:00 06/08/22 03:15 06/08/22 03:15 06/08/22 02:00 06/08/22 00:00 06/07/22 23:03 06/07/22 23:03 06/07/22 22:00 06/07/22 20:00 06/07/22 18:00 06/07/22 16:33 96 06/07/22 16:33 06/07/22 16:00 06/07/22 14:00 06/08/22 07:59 06/08/22 00:01 06/08/22 03:43 109/67 99 Room Air 06/07/22 23:35 128/62 98 Room Air 06/07/22 19:14 114/74 99 Room Air 06/07/22 16:40 98 Room Air Cardiovascular + regular rate and + regular rhythm + S1 normal and + S2 normal; no murmur no JVD and no carotid bruit no edema Respiratory + respiratory effort normal; no respiratory distress and no labored breathing no crackles, no rales, no rhonchi and no wheezes Pre-Sedation Airway Assessment Smoking Status: Never smoker Short, Thick Neck: No Thyromental Distance: > or= 3.5 Finger Breadths Oral Cavity: + WNL Mallampati Class: III ASA: ASA3 NPO Status Date of Last Intake of Fluids: 06/07/22 Date of Last Intake of Solid Food: 06/07/22 Procedure Planning Contraindications for Sedation: none Current Medications Reviewed: No Notes The planned sedation has been discussed with the patient. Informed Consent was obtained. I have identified the patient, determined the appropriateness of sedation and have assessed the patient immediately prior to the procedure. All medicine(s) and interventions are by my order.
[2022-06-08] MEDS ORDERED: MIDAZOLAM HCL 1 MG/ML 2ML VIAL ONE ×2 (12:22→13:06)
[2022-06-08] MEDS ORDERED: niCARdipine HCL INJ 2.5 MG/ML 10 ML AMP ONE (12:22)
[2022-06-08] MEDS ORDERED: fentaNYL citrate 100 MCG/2 ML VIAL ONE (12:22)
[2022-06-08] MEDS ORDERED: HEPARIN (PORCINE) 1000 UNIT/ML 10 ML (CATH LAB USE ONLY) ONE (12:22)
[2022-06-08] MEDS ORDERED: NITROGLYCERIN/D5W 100MCG/ML 20ML SYR ONE (12:23)
--- NOTE | 2022-06-08 13:10 | Post Anesthesia Assessment ---
Date of Service June 08, 2022 Post Sedation Assessment Vital Signs Temp Pulse Pulse Pulse Resp BP BP 06/09/22 10:01 36.7 C 73 59 L 20 106/69 06/09/22 09:52 64 06/09/22 08:07 36.7 C 59 L 20 06/09/22 02:28 37.0 C 63 16 06/08/22 23:59 61 06/08/22 22:55 36.9 C 61 16 106/69 06/08/22 19:51 37.2 C 67 16 06/08/22 16:26 73 16 06/08/22 16:07 18 06/08/22 15:45 58 L 6 L 06/08/22 15:45 110/69 06/08/22 15:30 58 L 9 L 06/08/22 15:45 58 L 16 110/69 06/08/22 15:15 57 L 16 105/72 06/08/22 15:00 55 L 16 109/71 06/08/22 14:44 36.7 C 54 L 16 118/76 06/08/22 14:25 57 L 16 103/69 06/08/22 14:10 59 L 16 113/77 06/08/22 11:49 36.5 C 06/08/22 11:40 64 18 96/70 L BP Pulse Ox O2 Del Method 06/09/22 10:01 137/73 93 06/09/22 09:52 06/09/22 08:07 137/73 93 Room Air 06/09/22 02:28 113/74 98 Room Air 06/08/22 23:59 06/08/22 22:55 99 Room Air 06/08/22 19:51 114/68 98 Room Air 06/08/22 16:26 Room Air 06/08/22 16:07 06/08/22 15:45 100 06/08/22 15:45 06/08/22 15:30 100 06/08/22 15:45 100 Room Air 06/08/22 15:15 100 Room Air 06/08/22 15:00 99 Room Air 06/08/22 14:44 100 Room Air 06/08/22 14:25 96 Room Air 06/08/22 14:10 96 Room Air 06/08/22 11:49 06/08/22 11:40 98 Room Air Recovery Score Activity: Moves 4 extremities Respiration: Deep Breath/Cough Circulation: +/-20% PreAnes Value Consciousness: Fully Awake Oxygen Saturation: > 92% On Room Air Post Anesthesia Score: 10 Discharge Sedation Level of Care: Phase I Post Sedation Plan On clinical assessment, the patient appears to have tolerated the sedation without complications. Patient is recovering as anticipated. Patient will continue to be monitored by nursing and may be discharged when sedation discharge criteria are met per below protocol. Upon Completions of procedure up to 15 minutes continue every 5 minute vital signs and the P.A.R. score; then discharge to a Phase I or Fast Track to Phase II per the following guidelines: * Discharge Patient to appropriate Phase II area if PAR is 8 or greater or return to pre- procedure baseline. The post - procedure orders will be as directed. * If PAR score is less than 8 or not return to pre-procedure baseline then patient will follow Phase I monitoring till PAR is reached for Phase II. The Phase I may be done in procedure room or may call to secure a Phase I area. * If naloxone or flumazenil are used for reversal, hold in Phase I for continued monitoring from when last reversal dose was given for a minimum of 60 minutes or longer pending the nurse and/or physician discretion of patient condition before discharge to Phase II. Please call the Sedation Physician to re-evaluate and complete post-note for discharge to Phase II area. Do NOT discharge from procedure sedation or Phase 1 until post- sedation evaluation note is complete by procedure /sedation MD Sedation Discharge Instructions to be given to the patient at discharge to home.
--- NOTE | 2022-06-08 13:16 | Cardiac Catheterization ---
Cardiac Cath Procedure Full Procedure Date June 08, 2022 Pre-Procedure Diagnosis Pre-Procedure Diagnosis: Non STEMI (Coronary thrombus per angiography 06/05/2022.) and CAD AUC Score AUC Score: 8 Post-Procedure Diagnosis Post-Procedure Diagnosis: Cardiothoracic Finding (Moderate size, nonmobile, echolucency consistent with thrombus occupying the ostial ramus extending into the proximal stent.) Procedure(s) Performed Procedure(s) Performed: Coronary Angiography and Left Heart Cath [employer] Specialist Hoang Pfeiffer DO Machine Stuffer(s) Celestino RTR Estimated Blood Loss Estimated Blood Loss: 5cc Medication(s) Medication(s): Fentanyl, Heparin, Lidocaine 1%, Nicardipine, Nitroglycerin and Versed Summary of Findings Moderate nonmobile coronary thrombus occupying proximal to the ostial ramus extending to the proximal stent. Thrombus appears smaller and nonmobile when compared to images dated 04/05/2023. Left main: No angiographic disease. Thrombus as noted above. LAD: 30% proximal D1: Normal LCx: 40% proximal Patent mid circumflex stent 70% ostial OM1, small vessel (jailed by circumflex stent) 50% mid Lcx (jailed by circumflex stent extending into OM-2) Ramus intermedius: Long area of stenting extending from the ostium to the mid segment. ERNESTO-3 flow. Hemodynamics Rest Ao:: Final Ao: LV: N/A Recommendations Recommendations: Management Recommendatons (Interventional cardiology consulted. Proceed with IVUS and possible intervention if indicated.) Specimens Specimens: None Radiation Exposure (mGy) 773 Contrast (mls) 45 Fluids (cc crystalloids) Fluids (cc crystalloids): 90 Nss50 Nss. Drains Drains: N/A Anesthesia Moderate sedation. Start 1241. End 1255. Sedation monitor: Tang TORRES Procedural Complication(s) None Disposition ICU I attest to the content of the Intraoperative Record and any orders documented therein. Any exceptions are noted below. ACC Data: Grinder Setup Operator Cardiac Status Clinical evaluation leading to the procedure 56-year-old patient initially presented with NSTEMI 06/04/2022. History of multivessel PCI. Off dual antiplatelet therapy for more than 1 year. Cardiac catheterization performed 06/05/2022 demonstrating coronary thrombus. Repeat angiogram performed today for reassessment of thrombus to consider possible int ervention after 72 hours of anticoagulation and dual antiplatelet therapy. CAD Presenation: Non STEMI STEMI OR Non-STEMI Symptom Onset Date: 06/03/22 Symptom Onset Time: 18:00 Thrombolytics: No Diagnostic Physicians Name: Hoang Pfeiffer DO Closure Device Percutaneous Entry Location: Radial Closure Device: Radial Band Recommendations: Management Recommendatons (Interventional cardiology consulted. Proceed with IVUS and possible intervention if indicated.) Intraprocedure Events Significant Disection: No Perforation: No
--- NOTE | 2022-06-08 13:57 | Hospitalist Progress Note ---
Date of Service June 08, 2022 Assessment & Plan (1) Chest pain: Plan NSTEMI CAD S/P stents --S/P Cardiac Cath:There is a moderate sized mobile echolucency occupying the distal left main adjacent to the ostium of the ramus intermedius suggesting thrombus. The thrombus is nonocclusive. Left main: No angiographic disease. Thrombus as noted above. LAD: 30% proximal. D1: Normal. LCx: 40% proximal. Patent mid circumflex stent. 70% ostial OM1, small vessel (jailed by circumflex stent). 50% mid Lcx (jailed by circumflex stent extending into OM-2).Patent mid radius stent. Long area of RCA stenting extending from the proximal through the mid segment. There is mild ISR up to 20%. Patent RPDA stent. Patent RPL stent . Plan; IV heparin hold for repeat cardiac cath today. We will follow-up on cardiology recommendation after the procedure. Continue aspirin, statin, metoprolol On Plavix Anxiety Likely situational Ativan PRN Hyperlipidemia On statin Hypertension On Amlodipine, metoprolol DVT Px: IV heparin Code Status Full code Admission and Anticipated Discharge Date Admission Date: June 05, 2022 Subjective Patient seen and examined at bedside. He is comfortably lying in the bed; not in distress. Denies any chest pain, shortness of breath or palpitation. Telemetry overnight shows sinus bradycardia Review of Systems Review of Systems: All systems reviewed & are unremarkable except as noted in Subjective Physical Exam Physical Exam: Physical Exam: Vitals signs as noted above General Appearance:Moderately built and nourished, no apparent distress Head: normocephalic, Atraumatic Eyes: normal inspection, EOMI Neck: supple, Trachea midline Respiratory/Chest: Normal breath sounds, CTA, No accessory muscle use Cardiovascular: S1, S2, No murmur Abdomen/GI:Soft, Non tender, Bowel sounds present Extremities/Musculoskeletal:normal inspection, no edema Neurologic/Psych:AAOX3, grossly no focal neurological deficits Skin: normal color, warm Results & Data Results & Data ([facility]) Vital Signs (Past 12 Hours) Vital Signs Temp Pulse Pulse Pulse Resp BP BP 06/08/22 11:49 36.5 C 06/08/22 11:40 64 18 96/70 L 06/08/22 10:00 55 L 10 L 06/08/22 08:32 122/73 06/08/22 08:32 60 8 L 06/08/22 08:00 54 L 20 06/08/22 06:00 50 L 0 L 06/08/22 04:00 55 L 22 06/08/22 03:15 109/67 06/08/22 03:15 61 20 06/08/22 02:00 55 L 12 06/08/22 07:59 36.6 C 06/08/22 03:43 36.4 C L 56 L 14 BP Pulse Ox O2 Del Method 06/08/22 11:49 06/08/22 11:40 98 Room Air 06/08/22 10:00 06/08/22 08:32 06/08/22 08:32 99 06/08/22 08:00 06/08/22 06:00 06/08/22 04:00 06/08/22 03:15 06/08/22 03:15 06/08/22 02:00 06/08/22 07:59 06/08/22 03:43 109/67 99 Room Air Laboratory Results Laboratory Results WBC 5.11 K/ul (4.8-10.8) 06/08/22 04:57 RBC 4.61 M/uL (4.63-6.08) L 06/08/22 04:57 Hgb 13.7 g/dl (14.0-18.0) L 06/08/22 04:57 Hct 39.4 % (40.1-51.0) L 06/08/22 04:57 MCV 85.5 fL (80.0-100.0) 06/08/22 04:57 MCH 29.7 pg (25.0-34.0) 06/08/22 04:57 MCHC 34.8 g/dL (32.0-36.0) 06/08/22 04:57 RDW Std Deviation 37.9 fL (36.4-46.3) 06/08/22 04:57 RDW Coeff of Jayson 12.3 % (11.5-14.5) 06/08/22 04:57 Plt Count 159 K/uL (130-400) 06/08/22 04:57 MPV 9.5 fL (9.4-12.4) 06/08/22 04:57 Immature Gran % (Auto) 3.1 % 06/04/22 20:00 Neut % (Auto) 79.8 % 06/04/22 20:00 Lymph % (Auto) 9.7 % 06/04/22 20:00 [place] % (Auto) 6.5 % 06/04/22 20:00 Eos % (Auto) 0.5 % 06/04/22 20:00 Baso % (Auto) 0.4 % 06/04/22 20:00 Neut # (Auto) 6.25 K/uL (1.4-6.5) 06/04/22 20:00 Lymph # (Auto) 0.76 K/uL (1.2-3.4) L 06/04/22 20:00 [place] # (Auto) 0.51 K/uL (0.24-0.82) 06/04/22 20:00 Eos # (Auto) 0.04 K/uL (0-0.50) 06/04/22 20:00 Baso # (Auto) 0.03 K/uL (0-0.2) 06/04/22 20:00 Immature Gran # (Auto) 0.24 K/uL (0.00-0.02) H 06/04/22 20:00 PT 11.1 Seconds (9.0-12.0) 06/04/22 20:00 INR 1.0 (0.9-1.1) 06/04/22 20:00 APTT 62.8 Seconds (21.0-31.0) H* 06/08/22 04:57 PTT Ratio 2.3 06/08/22 04:57 D-Dimer 2080 ug/L FEU (0-500) H* 06/04/22 20:00 Lupus Anticoagulant see note 06/05/22 10:35 LA PTT Screen >200 sec (<=40) H 06/05/22 10:35 Lupus Anticoag aPTT >200 sec (<=40) H 06/05/22 10:35 Dil Dante Viper Venom 45 sec (<=45) 06/05/22 10:35 Protein C Activity 81 % normal (70-180) 06/05/22 10:35 Protein S Activity 71 % normal (70-150) 06/05/22 10:35 Antithrombin III Activ 100 % normal (80-135) 06/05/22 10:35 Sodium 140 mmol/L (136-145) 06/08/22 04:57 Potassium 4.0 mmol/L (3.5-5.1) 06/08/22 04:57 Chloride 108 mmol/L (98-107) H 06/08/22 04:57 Carbon Dioxide 27 mmol/L (21-32) 06/08/22 04:57 Anion Gap 5 (3-11) 06/08/22 04:57 BUN 20 mg/dl (6-23) 06/08/22 04:57 Creatinine 0.97 mg/dl (0.6-1.4) 06/08/22 04:57 Est Cr Clr Drug Dosing 95.6 ml/min 06/08/22 04:57 Est GFR ( Amer) 102.2 ml/min 06/08/22 04:57 Est GFR (Non-Af Amer) 88.1 ml/min 06/08/22 04:57 BUN/Creatinine Ratio 20.6 (10-20) H 06/08/22 04:57 Glucose 97 mg/dl (70-99(Fasting)) 06/08/22 04:57 POC Glucose 88 mg/dl (70-99) 06/08/22 11:23 Estimat Average Glucose 108 mg/dl 06/06/22 08:46 Hemoglobin A1c 5.4 % (4.5-5.6) 06/06/22 08:46 Calcium 8.8 mg/dl (8.5-10.1) 06/08/22 04:57 Phosphorus 3.0 mg/dl (2.5-4.9) 06/06/22 08:46 Magnesium 2.2 mg/dl (1.7-2.4) 06/06/22 08:46 Troponin I High Sens 34563.8 pg/ml (0-20) H* D 06/05/22 11:52 Triglycerides 83 mg/dl (0-150) 06/05/22 05:41 Cholesterol 136 mg/dl (0-200) 06/05/22 05:41 LDL Cholesterol, Calc 75 mg/dl 06/05/22 05:41 VLDL Cholesterol, Calc 17 mg/dl (0-30) 06/05/22 05:41 HDL Cholesterol 44 mg/dl 06/05/22 05:41 Cholesterol/HDL Ratio 3.1 (0-5) 06/05/22 05:41 Lipase 30 U/L (11-82) 06/04/22 20:00 Homocysteine 9.8 umol/L (<11.4) 06/05/22 10:35 Nasal Screen MRSA (PCR) Negative (Negative) 06/05/22 05:55 Beta-2-GPI IgG Ab <2.0 U/mL (<20.0) 06/05/22 10:35 Beta-2-GPI IgM Ab 3.6 U/mL (<20.0) 06/05/22 10:35 Anti-Cardiolipin IgG Ab <2.0 GPL-U/mL 06/05/22 10:35 Anti-Cardiolipin IgM Ab <2.0 MPL-U/mL 06/05/22 10:35 SARS-CoV-2, RNA, NAAT NEGATIVE (NEGATIVE) 06/04/22 20:45 Impressions Chest X-Ray 06/04/22 20:25 XR chest 1V portable HISTORY: 56 years-old Male Chest pain, nonspecific COMPARISON: CTA chest of same day TECHNIQUE: AP view of the chest FINDINGS: Cardiomediastinal and hilar silhouettes are within normal limits. No pneumothorax, pleural effusion, airspace consolidation or overt pulmonary edema. Bones of the chest appear grossly intact. Cholecystectomy. IMPRESSION: No acute process. ACT 112: Negative or not required by law. The above report was generated using voice recognition software. It may contain grammatical, syntax or spelling errors. Electronically signed by: Kye Rios M.D. 06/05/2022 6:45 AM Chest CTA 06/04/22 21:08 CT angio chest PE protocol CT DOSE: 541.88 mGy.cm HISTORY: 56 years-old Male with ro PE. Acute shortness of breath TECHNIQUE: Multiple CTA images of the chest were obtained after the intravenous administration of 110 ml Optiray. Coronal and sagittal MIPS were obtained from the axial data set and were submitted for review. All measurements were obtained according to NASCET criteria. A dose lowering technique was utilized adhering to the principles of ALARA. COMPARISON: Chest radiograph of same day FINDINGS: CTA: The heart is normal in size. Extensive coronary artery calcifications. Unremarkable thoracic aorta and pulmonary artery. No pulmonary emboli are identified. CT CHEST: Unremarkable thyroid. No lymphadenopathy. No pneumothorax, pleural effusion, airspace consolidation or overt pulmonary edema. No suspicious pulmonary nodules or masses identified. Central airways are patent. The spleen is mildly enlarged, 13.4 cm. 1.1 cm mid splenic hypodensity is indeterminate however favored to be benign. Cholecystectomy. There are a few tiny hypodense foci of the liver, too small to characterize. Soft tissues are within normal limits. There is no acute fracture identified. IMPRESSION: 1. Unremarkable CTA of the chest. No pulmonary emboli identified. 2. Extensive coronary artery calcifications. 3. Mild splenomegaly. ACT 112: Negative or not required by law. The above report was generated using voice recognition software. It may contain grammatical, syntax or spelling errors. Electronically signed by: Kye Rios M.D. 06/05/2022 8:33 AM
[2022-06-08] MEDS ORDERED: TICAGRELOR 90 MG TAB ONE (13:59)
[2022-06-08 15:24] LABS: Lupus Hex Phase (Rflxdonotord) Positive (Negative); Thrombin Time (reflex only) >100 sec (13-19)
[2022-06-08] MEDS: Heparin Adult STANDARD Wt-Based Dextrose 5% 25,000 units/500 mL IV SCH (18:06)
--- NOTE | 2022-06-08 19:05 | Post Anesthesia Assessment ---
Date of Service June 08, 2022 Post Sedation Assessment Vital Signs Temp Pulse Pulse Pulse Resp BP BP 06/08/22 16:26 73 16 06/08/22 16:07 18 06/08/22 15:45 58 L 6 L 06/08/22 15:45 110/69 06/08/22 15:30 58 L 9 L 06/08/22 15:45 58 L 16 110/69 06/08/22 15:15 57 L 16 105/72 06/08/22 15:00 55 L 16 109/71 06/08/22 14:44 98.1 F 54 L 16 118/76 06/08/22 14:25 57 L 16 103/69 06/08/22 14:10 59 L 16 113/77 06/08/22 11:49 97.7 F 06/08/22 11:40 64 18 96/70 L 06/08/22 10:00 55 L 10 L 06/08/22 08:32 122/73 06/08/22 08:32 60 8 L 06/08/22 08:00 54 L 20 06/08/22 06:00 50 L 0 L 06/08/22 04:00 55 L 22 06/08/22 03:15 109/67 06/08/22 03:15 61 20 06/08/22 02:00 55 L 12 06/08/22 00:00 59 L 9 L 06/07/22 23:03 128/62 06/07/22 23:03 60 14 06/07/22 22:00 63 20 06/07/22 20:00 66 7 L 06/08/22 07:59 97.9 F 06/08/22 00:01 60 06/08/22 03:43 97.5 F L 56 L 14 06/07/22 23:35 98.2 F 60 16 06/07/22 19:14 98.4 F 66 18 BP Pulse Ox O2 Del Method 06/08/22 16:26 Room Air 06/08/22 16:07 06/08/22 15:45 100 06/08/22 15:45 06/08/22 15:30 100 06/08/22 15:45 100 Room Air 06/08/22 15:15 100 Room Air 06/08/22 15:00 99 Room Air 06/08/22 14:44 100 Room Air 06/08/22 14:25 96 Room Air 06/08/22 14:10 96 Room Air 06/08/22 11:49 06/08/22 11:40 98 Room Air 06/08/22 10:00 06/08/22 08:32 06/08/22 08:32 99 06/08/22 08:00 06/08/22 06:00 06/08/22 04:00 06/08/22 03:15 06/08/22 03:15 06/08/22 02:00 06/08/22 00:00 06/07/22 23:03 06/07/22 23:03 06/07/22 22:00 06/07/22 20:00 06/08/22 07:59 06/08/22 00:01 06/08/22 03:43 109/67 99 Room Air 06/07/22 23:35 128/62 98 Room Air 06/07/22 19:14 114/74 99 Room Air Recovery Score Activity: Moves 4 extremities Respiration: Deep Breath/Cough Circulation: +/-20% PreAnes Value Consciousness: Fully Awake Oxygen Saturation: > 92% On Room Air Post Anesthesia Score: 10 Discharge Sedation Level of Care: Fast Track Phase II Post Sedation Plan On clinical assessment, the patient appears to have tolerated the sedation without complications. Patient is recovering as anticipated. Patient will continue to be monitored by nursing and may be discharged when sedation discharge criteria are met per below protocol. Upon Completions of procedure up to 15 minutes continue every 5 minute vital signs and the P.A.R. score; then discharge to a Phase I or Fast Track to Phase II per the following guidelines: * Discharge Patient to appropriate Phase II area if PAR is 8 or greater or return to pre- procedure baseline. The post - procedure orders will be as directed. * If PAR score is less than 8 or not return to pre-procedure baseline then patient will follow Phase I monitoring till PAR is reached for Phase II. The Phase I may be done in procedure room or may call to secure a Phase I area. * If naloxone or flumazenil are used for reversal, hold in Phase I for continued monitoring from when last reversal dose was given for a minimum of 60 minutes or longer pending the nurse and/or physician discretion of patient condition before discharge to Phase II. Please call the Sedation Physician to re-evaluate and complete post-note for discharge to Phase II area. Do NOT discharge from procedure sedation or Phase 1 until post- sedation evaluation note is complete by procedure /sedation MD Sedation Discharge Instructions to be given to the patient at discharge to home.
--- NOTE | 2022-06-08 19:07 | Cardiac Catheterization ---
[facility] Data: Responder Cardiac Status Clinical evaluation leading to the procedure CAD Presenation: Non STEMI Anginal Classification: CCS IV Diagnostic Physicians Name: Cezar Pineda MD Closure Device Recommendations: PCI without planned CABG Cardiac Cath Procedure Full Procedure Date June 08, 2022 Pre-Procedure Diagnosis Pre-Procedure Diagnosis: Non STEMI (Coronary thrombus per angiography 06/05/2022.) and CAD AUC Score AUC Score: 8 Post-Procedure Diagnosis Post-Procedure Diagnosis: Severe CAD Procedure(s) Performed Procedure(s) Performed: Coronary Angiography, PTCA and IVUS Cataract Lens Generator Cezar Pineda MD Cryptographer(s) Celestino RTR Estimated Blood Loss Estimated Blood Loss: 15 Medication(s) Medication(s): Fentanyl, Heparin, Nicardipine, Nitroglycerin and Versed Summary of Findings Indication: NSTEMI Access: 6 Fr right radial artery Catheters: EBU 3.5 guide Findings: For full details of patient's coronary angiography please see cath report dictated by Dr. Pfeiffer. Briefly, patient found to have apparent thrombus located at ostium of stented ramus/trifurcation with LAD and circumflex. Anticoagulated for 2 days post initial findings. On repeat cardiac catheterization today again noted to have apparent thrombus now more localized at ramus ostium. Decision to further evaluate with IVUS and possibly perform PCI. -- PCI -- Antithrombotic therapy: Heparin, ticagrelor Procedure: Left main cannulated with EBU 3.5 guide Pre-procedure flow ERNESTO 3 BMW wire placed into LAD Austin IVUS catheter placed into mid LAD. Pullback revealed intermediate proximal to mid, mildly calcified disease (60 to 70%). Minimal disease at ostium. Left main with focal eccentric mild calcified disease. Stent from ramus noted to extend back into left main with unopposed stent struts. Question of thrombus in stent ostium versus along outer aspect stent in renita of bifurcation of LAD/ramus. [place] wire placed into circumflexIVUS of circumflex revealed mild proximal disease, patent ostium and left main again with ramus stent noted to extend into the left main. Motorcycle Mechanic 50 wire navigated across ostial ramus stent into distal vessel Austin IVUS of ramus revealed widely patent stent except for ostium of stent. Had unopposed stent struts in left main with questionable thrombus at ostium. Ostial/proximal ramus stent post-dilated with 2.5 noncompliant balloon IC vasodilators administered Post procedure ERNESTO 3 flow in all vessels, stent and appeared well-expanded. No apparent thrombus in ostial ramus stent. Questionable residual thrombus outside of ostial ramus stent at LAD/ramus renita versus eccentric calcified plaque. Arterial Closure: TR band Summary: 1. Intravascular ultrasound revealed questionable thrombus at ostium of ramus stent which extends back into left main. 2. Angioplasty of ostial/proximal ramus stent with 2.5 NC balloon. 3. Post procedure minimal, nonobstructive residual thrombus at LAD/ramus renita with ERNESTO-3 flow throughout LAD/ramus/LCx. Recommendations: To PCU for continued monitoring Loaded with ticagrelor 180 mg in Responder Continue dual-antiplatelet therapy indefinitely Hemodynamics Rest Ao:: 103/61/79 Final Ao: 118/70/89 LV: -- Recommendations Recommendations: PCI without planned CABG Specimens Specimens: None Radiation Exposure (mGy) 1858 Contrast (mls) 30 Drains Drains: N/A Anesthesia Moderate sedation. Start 1305. End 1356. Sedation monitor: Tang TORRES Procedural Complication(s) None Disposition PCU I attest to the content of the Intraoperative Record and any orders documented therein. Any exceptions are noted below. [facility] Card Cath Procedure Codes Therapeutic Services & Ancillary Procedure 1: Cardiovascular Tx and Anc Procedures: 86208 IV Ultrasound (Coronary or Graft) Procedure 2: Cardiovascular Tx and Anc Procedures: 16368 IV Ultrasound Ea addl vessel Procedure 3: Cardiovascular Tx and Anc Procedures: 17075 IV Ultrasound Ea addl vessel Moderate Sedation Procedure 1: Sedation/Anesthesia: 45431 Mod Sedation by the same physician; Ea [id number] Minutes Angioplasty Procedure 1: Cardiovascular Angioplasty Procedures: 77848 PTCA; Single mafor coronary artery or branch RC LC LD PG Care Time/CCT Total # of Minutes Spent Total Time Spent with Patient: Total time spent is greater than 50% in coordination of care (as documented) at patient's floor/unit and/or counseling patient:
[2022-06-08 20:48] LABS: Factor 5 Mutation NEGATIVE
[2022-06-08] MEDS: ATORVASTATIN 40 MG TAB PO SCH (20:56)
[2022-06-08] MEDS: LORazepam 0.5 MG TAB PO PRN (22:29)
--- NOTE | 2022-06-09 05:55 | Electrocardiogram Report ---
Test Reason : Blood Pressure : / mmHG Vent. Rate : 056 BPM Atrial Rate : 056 BPM P-R Int : 180 ms QRS Dur : 096 ms QT Int : 434 ms P-R-T Axes : 121 165 160 degrees QTc Int : 418 ms Normal sinus rhythm Limb lead reversal suspected Abnormal ECG When compared with ECG of 07-JUN-2022 06:04, Limb lead reversal is now present Confirmed by Jose Manuel eBtts ([id number]) on 06/09/2022 5:54:46 AM Referred By: NO PCP Confirmed By:Jose Manuel Betts
[2022-06-09 06:28] LABS: Basophils # (auto) 0.02 K/uL (0-0.2); Basophils % (auto) 0.3 %; Eosinophils % (auto) 1.5 %; Hematocrit (blood only) 38.9 % (40.1-51.0); Hemoglobin 13.8 g/dl (14.0-18.0); Immature Granulocytes # (auto) 0.06 K/uL (0.00-0.02); Immature Granulocytes % (auto) 0.9 %; Lymphocytes # (auto) 0.82 K/uL (1.2-3.4); Lymphocytes % (auto) 12.2 %; Mean Corpuscular Hemoglobin 29.7 pg (25.0-34.0); Mean Corpuscular Hgb Conc 35.5 g/dL (32.0-36.0); Mean Corpuscular Volume 83.7 fL (80.0-100.0); Mean Platelet Volume 10.1 fL (9.4-12.4); Monocytes % (auto) 7.4 %; Neutrophils # (auto) 5.24 K/uL (1.4-6.5); Neutrophils % (auto) 77.7 %; Platelet Count 146 K/uL (130-400); RDW Coefficient of Variation 12.4 % (11.5-14.5); RDW Standard Deviation 37.7 fL (36.4-46.3); Red Blood Count 4.65 M/uL (4.63-6.08); White Blood Count 6.74 K/ul (4.8-10.8)
[2022-06-09 06:37] LABS: Partial Thromboplastin Ratio 1.1; Partial Thromboplastin Time 28.9 Seconds (21.0-31.0)
[2022-06-09 06:44] LABS: Albumin Globulin Ratio 1.6 (0.9-2); Albumin Level 3.9 gm/dl (3.4-5.0); BUN Creatinine Ratio 20.9 (10-20); Bilirubin,Total 1.1 mg/dl (0.2-1.0); Calcium 8.2 mg/dl (8.5-10.1); Creatinine Clr Calc Pharmacy 101.9 ml/min; Est GFR (African American) 110.3 ml/min; Est GFR (Non-African American) 95.2 ml/min; Globulin 2.5 gm/dl (2.5-4.0); Magnesium 2.1 mg/dl (1.7-2.4); Total Protein 6.4 gm/dl (6.0-8.3)
[2022-06-09] MEDS: CITALOPRAM 20 MG TAB PO SCH (07:52)
[2022-06-09] MEDS: METOPROLOL SUCC 25MG EXT REL TAB PO SCH (07:52)
[2022-06-09] MEDS: amLODIPine BESYLATE 5 MG TAB PO SCH (07:52)
[2022-06-09] MEDS: ASPIRIN 81 MG ECTAB PO SCH (07:53)
[2022-06-09] MEDS: PANTOprazole 40 MG TAB PO SCH (07:53)
[2022-06-09] MEDS ORDERED: TICAGRELOR 90 MG TAB PO SCH (09:00)
--- NOTE | 2022-06-09 10:16 | Cardiology Progress Note ---
Date of Service June 09, 2022 Assessment & Plan (1) Coronary artery thrombosis: (2) NSTEMI (non-ST elevated myocardial infarction): (3) CAD (coronary artery disease): (4) HTN (hypertension): Plan 56-year-old patient present 06/04/2022 with NSTEMI. Cardiac catheterization performed 06/05/2022 demonstrating coronary thrombus near the ostium of the ramus intermedius. Etiology of thrmbus likely secondary to late stent thrombosis of Ramus RADHA which extends in the left main coronaary artery on IVUS. Patent RCA, RPDA, RPL, left circumflex, and ramus intermedius stents. Thrombus size reduced per repeat catheterization 06/08/2022. S/P POBA ramus. plavix discontinued and loaded with Brilinta yesterday. Recommmend usp dual antiplatelet therapy with aspirin plus brilinta. Continue amlodipine, atorvastatin, metoprolol succinate as previously ordered. Repeat lupus anticoagulant when off anticoagulation. This can be performed in outpatient setting. Admission and Anticipated Discharge Date Admission Date: June 05, 2022 Subjective Patient feeling well today. No CP. Telemetry demonstrates sinus rhythm. IVUS of LAD and POBA ramus perfomed yesterday without complication. Loaded with Brilinta in laboratory equipment cleaner. Patient offers no complaints. Review of Systems Review of Systems: All systems reviewed & are unremarkable except as noted in Subjective Physical Exam Constitutional: well nourished; no acute distress ENMT: Mallampati Class: III Respiratory: normal respiratory effort; no respiratory distress and no labored breathing Auscultation: no crackles, no rales, no rhonchi and no wheezes Cardiovascular: Rate/Rhythm: regular rate and regular rhythm Heart Sounds: normal S1 and normal S2; no murmur Palpation: normal PMI Vessels: no JVD and no carotid bruit Extremities: no edema Gastrointestinal (Abdomen): Inspection/Auscultation: abdomen normal to inspection and normal bowel sounds; abdomen not distended Percussion/Palpation: abdomen soft; abdomen nontender, no guarding and abdomen not rigid Neurologic: CN's II-XI intact bilaterally and moves all extremities; no focal motor deficits Psychiatric: A+Ox3, euthymic affect Results & Data ([facility]) Vital Signs (Past 12 Hours) Vital Signs Temp Pulse Pulse Pulse Resp BP BP 06/09/22 10:01 36.7 C 73 59 L 20 106/69 137/73 06/09/22 09:52 64 06/09/22 08:07 36.7 C 59 L 20 137/73 06/09/22 02:28 37.0 C 63 16 113/74 06/08/22 23:59 61 06/08/22 22:55 36.9 C 61 16 106/69 Pulse Ox O2 Del Method 06/09/22 10:01 93 06/09/22 09:52 06/09/22 08:07 93 Room Air 06/09/22 02:28 98 Room Air 06/08/22 23:59 06/08/22 22:55 99 Room Air
--- NOTE | 2022-06-09 14:51 | Discharge Summary ---
Date of Service June 09, 2022 Admission HPI Per Admitting Provider 56-year-old man with PMH of recent diagnosis of COVID, HTN, HLD, [place] in November 2019 status post 7 stents presented to the ED 06/04 with complaint of chest discomfort that he started as a pressure while he was watching a basketball game, did not resolve, given his prior [place] history he decided to come to the hospital. Patient is visiting from [place]. Chest pain started around 6:15 PM, while watching game, as pressure-like over left chest, associated with panic and sweating, no radiation, no nausea. Patient denies any headache/dizziness/sore throat/cough/belly pain/acute changes in his bowel or bladder habits/other review of symptoms. Patient denies smoking/alcohol/recreational drug use. Full code Occupationmental therapist Medications reviewed with the patient at bedside. Patient's Sister Radha was present at bedside. Family history positive for father dying of massive heart attack at his age 40. Admission Exam Per Admitting Provider GENERAL: Alert and oriented x3. NAD, on RA. HEENT: No pallor, no icterus. Pupils equal, round and reactive to light. Oral mucosa moist. NECK: No JVD, no neck masses. HEART: S1 and S2 heard. Regular rate and rhythm. No murmur, no gallop. RESPIRATORY SYSTEM: Normal AP diameter. No accessory muscle use. No wheezing, no crackles. ABDOMEN: Soft, bowel sounds present, nontender, no distention. CENTRAL NERVOUS SYSTEM: No facial droop. Speech is clear. Obeys simple commands. Moves extremities. EXTREMITIES: No edema, no erythema seen. Principal Diagnosis NSTEMI Discharge Exam General Appearance:Moderately built and nourished, no apparent distress Head: normocephalic, Atraumatic Eyes: normal inspection, EOMI Neck: supple, Trachea midline Respiratory/Chest: Normal breath sounds, CTA, No accessory muscle use Cardiovascular: S1, S2, No murmur Abdomen/GI:Soft, Non tender, Bowel sounds present Extremities/Musculoskeletal:normal inspection, no edema Neurologic/Psych:AAOX3, grossly no focal neurological deficits Skin: normal color, warm Discharge Data Allergies Allergy/AdvReac Type Severity Reaction Status Date / Time No Known Allergies Allergy Mild Verified 06/04/22 20:36 Consultations 06/05/22 00:11 ED Decision to Admit Stat 06/05/22 00:29 Consult Cardiology Routine 06/05/22 02:59 Consult Manager English Routine Procedures Performed Operation Date: 06/05/22 08:30 Actual Procedures s Cineradiography w/Routine Exam - Hoang Pfeiffer DO p Cath, Left with Cors and Vent - Hoang Pfeiffer DO Operation Date: 06/08/22 11:00 Actual Procedures s Cineradiography w/Routine Exam - Hoang Pfeiffer DO p POBA SGL Vessel - Apolinar Pineda MD p IVUS Coronary Single Vessel - Apolinar Pineda MD s IVUS Coronary each ADDL Vessel - Apolinar Pineda MD s Cath, Coronaries ONLY (no LV) - Hoang Pfeiffer DO Ordered Studies 06/04/22 21:08 CT angio chest PE protocol Urgent 06/05/22 07:06 CL Cath Imgs for PACS use only Routine 06/08/22 10:30 CL Cath Imgs for PACS use only Routine Hospital Course (1) Chest pain: (2) NSTEMI (non-ST elevated myocardial infarction): Plan Patient is a 56-year-old male with past medical history of [place] status post 7 stent in November 2019 who presented to the ED with chest pressure. On admission, EKG shows normal sinus rhythm; with nonspecific ST and T wave changes. High sensitive troponin was 64 which up trended to 31,000 in 4 hours. Patient was started on IV heparin and was transferred to ICU for closer monitoring. Cardiac catheterization was done in 06/05/2022 which showed coronary thrombus near the ostium of the ramus intermedius. As per cardiology,Etiology of thrombus likely secondary to late stent thrombosis of Ramus RADHA which extends in the left main coronary artery on IVUS. Patient was continued on IV heparin and dual antiplatelet after the cardiac catheterization. He underwent repeat cardiac catheterization on 06/08/2022 which showed reduction in size of thrombus. He also underwent Angioplasty of ostial/proximal ramus stent with 2.5 NC balloon. Patient's Plavix was switched over to Brilinta. Patient remained chest pain- free throughout the hospitalization. No significant arrhythmia were noted. Patient was discharged with instruction to follow-up with his primary care doctor and cardiology in [place]. He was instructed to repeat lupus anticoagulant panel. Prescription for Brilinta and metoprolol was sent over to the pharmacy. Total Time Total Time Spent Total Time Spent (In Minutes): 40 Total Time Includes: Examination of the Patient, Discharge Planning, Medication Reconciliation, Communication With Other Providers and Other Discharge Plan Discharge Items Patient Disposition: Home - Self-Care Reason For Visit: CHEST DISCOMFORT Discharge Diagnosis: NSTEMI Activity: Resume your previous activity Lifting: No more than 5 pounds Lifting Comment: On right hand Driving/Machine Use: Resume 1 day after discharge Non-emergency contact: Primary Care Provider Call non-emergency contact if: you have any medication questions Follow-up/Referrals: PCP,NO [Primary Care Provider] - Diet: Heart Healthy Addtl Attending Provider Instructions: The following medication changes have been made to your medication list: -Stop Plavix. He was started on Brilinta 90 mg twice daily. You have to take aspirin and Brilinta long-term. -Continue all your other medication. Please follow-up with your primary care doctor and wood carver hand. You will need repeat of lupus anticoagulant panel. Pending Studies at Discharge: No Stand-Alone Forms: My [facility], Smoking Cessation Medications and DC Order Prescriptions: New Brilinta 90 mg Tablet 90 mg PO BID Qty: 60 0RF Continued garlic 300 mg Capsule 300 mg PO DAILY atorvastatin 80 mg tablet 80 mg PO HS aspirin 81 mg Tablet,Delayed Release (Dr/Ec) 81 mg PO DAILY citalopram 20 mg tablet 20 mg PO DAILY amlodipine 10 mg tablet 10 mg PO DAILY omega [id number] oil [Fish Oil] 1,000 mg (120 mg-180 mg) Capsule 1 cap PO DAILY metoprolol succinate 25 mg tablet extended release 24 hr 25 mg PO DAILY Qty: 60 0RF Discharge Orders: Discharge Order (Routine); Ordered 06/09/22 Ordered By: Brett Gunderson Admission Data Admit Date/Time: 06/05/22 05:42 Attending Provider: Brett Gunderson Admit Provider: Nilo Mulligan Primary Care Provider: PCP,NO Other Providers: Nilo Mulligan ; Evens Kamara ; Norbert Hanks ; Jose Luis Guerrero ; Hoang Pfeiffer ; Leonard Chua ; Filiberto Varghese ; Bertha Mills ; Tennille Coe ; Heena Edouard. ; Daryl Wolf ; Raciel Narayanan Other Interventions: Discharge Summary Assessment (RN) Last Done: 06/09/22 10:01
== END 2022-06-09 11:36 | disposition home or self-care (01) | DRG 251 ==
LOC: ED 19:52 → EDINP 19:52 → SUATTDRO 06-05 00:30 → 1E 06-05 01:55 → SUATTDRO 06-05 05:42 → 2S 06-08 15:56
PROC: CLB.CCO (2022-06-08 11:00)